=== PATIENT | male | born 1930 | race Caucasian/White ===

== ENCOUNTER 2017-05-29 11:51 | Inpatient (IN) ==
[2017-05-29 12:27] LABS: MANUAL DIFF NEEDED? NO
[2017-05-29] MEDS ORDERED: NS 1,000 ML IV ONE (12:27)
[2017-05-29 12:29] LABS: BASO% 0.1 % (0.0-0.8); EOS# 0.01 X1000 (0.0-0.7); EOS% 0.1 % (0.0-10.0); HEMATOCRIT 41.1 % (42.0-52.0); HEMOGLOBIN 12.8 g/dL (14.0-18.0); IMM GRAN# 0.07 X1000 (0.0-0.04); IMM GRAN% 0.4 % (0.0-0.5); LYMPH# 0.96 X1000 (1.2-3.4); LYMPH% 5.9 % (20.5-51.1); MCHC 31.1 g/dL (33-37); MONO# 1.41 X1000 (0.11-0.59); MONO% 8.7 % (1.7-9.3); MPV 9.6 FL (7.4-10.4); NEUT% 84.8 % (42.2-75.2); PLT 196 X1000 (130-400); RBC 5.34 XMIL (4.7-6.1)
[2017-05-29 12:39] LABS: ALLEN TEST YES; BE -1.8 mmoll (-3.0-3.0); BLOOD TYPE ARTERIAL; DRAW SITE R RADIAL; METHB 1.8 % (0.0-1.5); O2(CT) 15.6 mL/dL (15.0-23.0); PCO2(98.6) 33 mmHg (35-45); PO2(98.6) 58 mmHg (60-100); SAMPLE BLOOD; SAO2 93.8 % (95.0-100.0); THB 12.4 g/dL (11.5-17.4); pH(98.6) 7.43 (7.35-7.45)
[2017-05-29 12:41] LABS: MODALITY CANNULA
[2017-05-29 12:52] LABS: ALBUMIN 3.6 g/dL (3.5-5.0); CALCIUM 8.6 mg/dL (8.8-10.2); POTASSIUM 4.7 mmol/L (3.5-5.1); TOTAL BILIRUBIN 1.8 mg/dL (0.20-1.00); TOTAL PROTEIN 6.8 g/dL (6.3-8.3)
--- NOTE | 2017-05-29 13:01 | Diag Imaging Result Doc PS360 ---
EXAM: CHEST-1 VIEW HISTORY: hypoxia TECHNIQUE: AP portable upright at 1255 COMMENT: There is cardiomegaly. There granulomata bilaterally. The appearance of the chest has not changed significantly since 10/28/2016. IMPRESSION: Stable chest. Electronically signed by Wellington Mason 05/29/2017 12:59 PM
--- NOTE | 2017-05-29 14:33 | PROVIDER DOCUMENTATION ---
This chart was entered by Palmira Sandoval Scribe, acting as scribe for Holland Wolfe MD. HPI-General Adult - General Chief Complaint: General Adult Stated Complaint: HYPOTENSION, LOW O2 Time Seen by Provider: 05/29/17 12:05 Source: patient Allergies/Adverse Reactions: Patient Allergies Allergy/AdvReac Type Severity Reaction Status Date / Time No Known Allergies Allergy Verified 05/29/17 12:43 Home Medications: Home Medication List Medication Instructions Recorded Confirmed Last Taken Type LISINOpril [Prinivil] 5 mg PO DAILY 09/08/12 05/29/17 05/29/17 09:30 History PRAVAstatin 40 mg PO QHS 09/08/12 05/29/17 05/28/17 History Isosorbide Mononitrate [Isosorbide 30 mg PO DAILY 10/25/16 05/29/17 05/29/17 09: 30 History Mononitrate ER] Levetiracetam 500 mg PO BID 10/25/16 05/29/17 05/29/17 09:30 History Apixaban [Eliquis] 5 mg PO BID #60 tablet 10/31/16 05/29/17 05/29/17 09:30 Rx Cyanocobalamin (Vitamin B-12) 1,000 mcg PO DAILY 05/29/17 05/29/17 05/29/17 09: 30 History [Vitamin B12] Furosemide 40 mg PO DIRECTED 05/29/17 05/29/17 05/28/17 09:00 History Sennosides/Docusate Sodium [Stool 1 each PO DIRECTED 05/29/17 05/29/17 History Softener-Laxative Tablet] - History of Present Illness -Gen Adult Nature of Presenting Problems: Pt is a 86 y/o M present to the ED via EMS with low O2 and blood pressure. Pt states home health sent him here. Pt states he feels fine. Pt states he is walking and eating at home fine. Location of Pain/Injury: reports: none Pain Radiation: reports: no radiation Quality of Pain: reports: none Severity: reports: mild Onset/Duration: reports: this morning Timing: reports: still present Context/Activities at Onset: reports: light activity Modifying Factors: improves with: nothing Associated Symptoms: reports: denies symptoms Similar Symptoms Previously?: No Recently seen or treated by another doctor?: No Review of Systems - Adult - REVIEW OF SYSTEMS - ADULT ROS:: limited per condition Constitutional: reports: no symptoms reported Eyes: reports: no symptoms reported Ears, Nose, Mouth & Throat: reports: no symptoms reported Cardiovascular: reports: no symptoms reported Respiratory: reports: no symptoms reported Gastrointestinal: reports: no symptoms reported Genitourinary: reports: no symptoms reported Musculoskeletal: reports: no symptoms reported Integumentary: reports: no symptoms reported Neurological: reports: no symptoms reported Psychiatric: reports: no symptoms reported Endocrine: reports: no symptoms reported Hematologic/Lymphatic: reports: no symptoms reported Allergic/Immunologic: reports: no symptoms reported All Other Systems: Reviewed and Negative Past History - Adult - PAST MEDICAL HISTORY-ADULT Review of Records: reports: Nursing Assessment Review, Medications Reviewed, Social history reviewed & non-contributory. 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 negative: lethargic, slow to respond - EYES Eyes: PERRL/EOMI, pink conjunctivae. negative: pale conjunctivae, sunken eyes - HEAD, EARS, NOSE, MOUTH & THROAT HENMT: normal ENT inspection. negative: angioedema, hearing deficit - NECK Neck: normal inspection. negative: lymphadenopathy, tender lateral - RESPIRATORY Respiratory: chest non-tender, lungs clear, normal breath sounds. negative: crackles, rhonchi - CARDIOVASCULAR Cardiovascular: normal peripheral pulses, regular rate, rhythm. negative: tachycardia, systolic murmur - GASTROINTESTINAL (ABDOMEN) Abdominal Exam: normal bowel sounds, non tender, distended. negative: guarding , rebound - LYMPHATIC Lymphatic: no adenopathy. negative: enlargement, streaking - MUSCULOSKELETAL Back Exam: normal inspection. negative: ecchymosis, swelling Extremity: normal inspection. negative: deformity, erythema - SKIN Integumentary: normal color, normal turgor, warm/dry. negative: diaphoresis, ecchymosis, erythema, laceration(s) - NEUROLOGIC Neurologic: grossly normal. negative: aphasia, facial droop - PSYCHIATRIC Psych/Mental Status: normal mood/affect. negative: paranoid, tearful Progress - PLAN OF CARE/RESULTS Progress/Plan/Lab Results: Vital Signs - 8 hr 05/29/17 12:03 Temperature 99.4 F Pulse Rate 67 Respiratory Rate 20 Blood Pressure 86/46 O2 Sat by Pulse Oximetry 72 L Result Diagrams: 05/30/17 10:30 05/30/17 08:40 - REASSESSMENT Reassessment #1 Time Reassessed: 12:42 Status: other (Dr. Wolfe spoke with Pt's daughter about Pt. Pt's daughter states Pt has been declining since Saturday. Pt's daughter states hx of clot on brain and PE. Pt's daughter states she has recently had a decrease in appetite and the family has been having to feed Pt.) - EKG 1 Time of EKG reading by physician:: 12:24 EKG Read and Signed by:: Holland Wolfe EKG Interpretation (*Must complete 3 of following elements*): Abnormal (ST & T wave abnormality, consider lateral ischemia) Rate: 71 Rhythm: atrial fibrillation with uncontrolled response Comments: left axis deviation; inferior infarct, age undetermined - XRAY 1 XRAY Study: Chest Impression: Normal XRAY Interpretation: stable chest - ULTRASOUND (By Radiology) 1 US Study: Abdomen Impression: Abnormal ( Cholelithiasis with possible chronic cholecystitis. The aorta was not well demonstrated on this study) - CONSULTS/PCP/HOSPITALIST Notification #1 *Consult/PCP/Hospitalist*: Dr. Robles Time Discussed: 16:27 Reason/Comments: Dr. Wolfe consulted with Dr. Robles about Pt Consult Disposition: other (Dr. Robles will consult. Admit Pt to Hospitalist) #2 Consult: Dr. Georges Time Discussed: 16:31 (Hospitalist accepted admit ) Reason/Comments: Dr. Wolfe consults with Dr. Georges about Pt Consult Disposition: Admit Departure - Departure Date of Disposition Decision: 05/29/17 Time of Disposition Decision: 16:35 DIAGNOSIS: Sepsis Qualifiers: Sepsis type: sepsis due to unspecified organism Qualified Code(s): A41.9 - Sepsis, unspecified organism Cholecystitis with cholelithiasis Qualifiers: Cholelithiasis location: gallbladder Cholecystitis acuity: acute Biliary obstruction: without biliary obstruction Qualified Code(s): K80.00 - Calculus of gallbladder with acute cholecystitis without obstruction Hypotension Qualifiers: Hypotension type: other hypotension type Qualified Code(s): I95.89 - Other hypotension Disposition: ADMITTED INPATIENT 09 Certified Medical Emergency: Emergent Condition: Stable - Critical Care Note This patient required my direct & personal management of CC.: Yes Total Time (mins): 60 Critical Care Statement: This patient required my direct personal management to treat or rule out processes, the absence of which, could potentiallly result in sudden, clinically significant life or limb threatening deterioration. Attestation - Physician/ URMILA Attestation Patient care was provided by Advanced Practice Provider:: No The physician spent face to face time with patient:: Yes Advanced Practice Provider documentation review:: Supervising physician onsite and consulted in the evaluation and care of this patient. The physician did have a face to face encounter with the patient. This chart was documented by the indicated scribe, (Palmira Sandoval Scribe) and accurately reflects the services I performed and decisions made by me, Holland Wolfe MD, as attested by the provider's signature.
--- NOTE | 2017-05-29 15:08 | Diag Imaging Result Doc PS360 ---
EXAM: US ABDOMEN-COMPLETE HISTORY: hypotesive, aortic and iliac aneurysms? TECHNIQUE: Abdominal ultrasound COMMENT: The aorta is largely obscured. The study is somewhat suboptimal due to the patient's body habitus. The gallbladder is markedly thickened in appearance however there is no sonographic Stoner sign. There are some small stones demonstrated dependently. There is no evidence of biliary dilatation the common bile duct measuring 2 mm. There is antegrade flow in the portal vein. The inferior vena cava is normal where it is visible. The pancreas is obscured. The liver is not well demonstrated throughout its extent with the left lobe being largely obscured. There are granulomata in the spleen which is nonenlarged. There are apparent cysts present in the left kidney. One of these measures as much as 2.6 cm. There is no evidence of hydronephrosis on either side. IMPRESSION: Cholelithiasis with possible chronic cholecystitis. The aorta was not well demonstrated on this study. Electronically signed by Wellington Mason 05/29/2017 3:05 PM
[2017-05-29] MEDS ORDERED: NS 1,700 ML IV ONE (15:39)
[2017-05-29] MEDS: ZOSYN 3.375 GM in NS 50 ML IV SCH ×2 (15:44→21:39)
--- NOTE | 2017-05-29 15:45 | EKG Report ---
Test Performed on : 05/29/2017 12:24:57 PM Test Reason : irregular heart beat Blood Pressure : / mmHG Vent. Rate : 071 BPM Atrial Rate : 064 BPM P-R Int : 000 ms QRS Dur : 078 ms QT Int : 406 ms P-R-T Axes : 000 -48 010 degrees QTc Int : 441 ms Undetermined rhythm Left axis deviation Inferior infarct (cited on or before 22-JUL-2016) ST \T\ T wave abnormality, consider lateral ischemia Abnormal ECG When compared with ECG of 07-FEB-2017 14:55, Current undetermined rhythm precludes rhythm comparison, needs review T wave inversion now evident in Lateral leads Unconfirmed Result
[2017-05-29 16:30] LABS: URINE CULTURE NEEDED? NO; URINE MICRO REVIEW NEEDED? NO; URINE SOURCE CATH
[2017-05-29 16:36] LABS: BILIRUBIN URINE SMALL (NEGATIVE); BLOOD URINE TRACE (NEGATIVE); COLOR YELLOW; GLUCOSE URINE 70 mg/dL (NEGATIVE); LEUKOCYTES URINE NEGATIVE (NEGATIVE); NITRITE URINE NEGATIVE (NEGATIVE); PH URINE 5.5; PROTEIN URINE 70 mg/dL (NEGATIVE); SP GRAVITY URINE 1.021; TURBIDITY URINE CLEAR (CLEAR); UROBILINOGEN URINE 4 mg/dL (NORMAL)
[2017-05-29 16:37] LABS: UR EPITHELIAL CELLS <10 /HPF (<10); URINE BACTERIA NEGATIVE /HPF; URINE RBC <10 /HPF (<10); URINE WBC <10 /HPF (<10)
[2017-05-29] MEDS ORDERED: LEVOPHED 8 MG in D5 1/2 NS 250 ML IV SCH (17:15)
[2017-05-29] MEDS ORDERED: ZOFRAN IV PRN (17:37)
[2017-05-29] MEDS ORDERED: TYLENOL PO PRN (17:37)
--- NOTE | 2017-05-29 17:40 | Diag Imaging Result Doc PS360 ---
EXAM: CHEST-PORTABLE - 05/29/2017 HISTORY: SOB TECHNIQUE: Portable chest 1720 COMPARISON: 05/29/2017 FINDINGS: There is stable cardiomegaly. There is stable mild prominence of central vascular markings. Compared to previous exam, there are no acute changes identified. IMPRESSION: Stable exam compared to prior. Electronically signed by Oscar Melton 05/29/2017 5:38 PM
[2017-05-29] MEDS ORDERED: DUONEB (A & A) INH PRN (17:42)
[2017-05-29] MEDS: FLAGYL 500 MG/NS 500 MG/100 ML IVPB IV SCH ×2 (17:49→23:29)
[2017-05-29] MEDS ORDERED: NS 1,000 ML IV SCH (18:17)
[2017-05-29 18:37] LABS: ALLEN TEST YES; BE -1.5 mmoll (-3.0-3.0); BLOOD TYPE ARTERIAL; DRAW SITE R RADIAL; METHB 0.9 % (0.0-1.5); O2(CT) 14.2 mL/dL (15.0-23.0); PCO2(98.6) 36 mmHg (35-45); PO2(98.6) 65 mmHg (60-100); SAMPLE BLOOD; SAO2 96.4 % (95.0-100.0); THB 10.9 g/dL (11.5-17.4); pH(98.6) 7.41 (7.35-7.45)
[2017-05-29 18:38] LABS: MODALITY CANNULA
[2017-05-29] MEDS ORDERED: PERICOLACE PO PRN (19:06)
--- NOTE | 2017-05-29 20:04 | Diag Imaging Result Doc PS360 ---
EXAM: LUNG SCAN / VQ - 05/29/2017 HISTORY: R/O PE TECHNIQUE: Ventilation images performed using 40.1 mCi technetium 99m DTPA aerosol inhaled. Perfusion images performed using 5.8 mCi technetium 99m MAA administered intravenously. Ventilation perfusion images are obtained in multiple projections over the lungs. COMPARISON: 10/25/2016 FINDINGS: Ventilation is heterogeneous. Perfusion is more homogeneous. There is no ventilation/perfusion mismatch (area which is ventilated but not perfused) identified. IMPRESSION: Low probability for pulmonary embolism. Electronically signed by Oscar Melton 05/29/2017 8:01 PM
[2017-05-29] MEDS: DUONEB (A & A) INH SCH ×2 (20:17→22:54)
--- NOTE | 2017-05-29 20:27 | Diag Imaging Result Doc PS360 ---
EXAM: CT ABDOMEN W/O CONTRAST - 05/29/2017 HISTORY: abdominal distention, cholecystitis TECHNIQUE: Without contrast per request the referring provider. Dose reduction protocol. COMPARISON: 10/29/2016 FINDINGS: The gallbladder is distended. The gallbladder perez are thickened. There are pericholecystic inflammatory changes. These findings are suspicious for acute cholecystitis. There are no other acute abnormalities of the liver, spleen, or pancreas identified. The pancreas is atrophic similar to the previous exam. There are atherosclerotic calcifications plus or minus nonobstructing stones in the left kidney. There is no hydronephrosis. The infrarenal abdominal aorta is mildly dilated up to 3.4 x 2.9 cm, which is stable. There are atherosclerotic calcifications noted. The right common iliac artery is dilated up to 4.1 cm, which is stable. There is no evidence of bowel obstruction. There is no free air. IMPRESSION: Acute cholecystitis. Stable dilatation of infrarenal abdominal aorta. Stable dilatation of right common iliac artery. Verbal results provided to Dr. Kaiser at 8:24 PM on 05/29/2017. Electronically signed by Oscar Melton 05/29/2017 8:25 PM
[2017-05-29] MEDS: HUMULIN R SUBQ SCH (20:29)
[2017-05-29] MEDS ORDERED: HEPARIN SUBQ SCH (21:00)
[2017-05-30] MEDS: ZOSYN 3.375 GM in NS 50 ML IV SCH ×5 (03:15→21:25)
[2017-05-30] MEDS: DUONEB (A & A) INH SCH ×6 (03:32→23:01)
[2017-05-30 04:28] LABS: BASO% 0.1 % (0.0-0.8); HEMATOCRIT 33.6 % (42.0-52.0); HEMOGLOBIN 10.3 g/dL (14.0-18.0); IMM GRAN# 0.08 X1000 (0.0-0.04); IMM GRAN% 0.7 % (0.0-0.5); LYMPH# 0.62 X1000 (1.2-3.4); LYMPH% 5.8 % (20.5-51.1); MANUAL DIFF NEEDED? YES; MCH 23.8 PG (27-31); MCHC 30.7 g/dL (33-37); MCV 77.8 FL (81-99); MONO% 8.3 % (1.7-9.3); MPV 9.6 FL (7.4-10.4); NEUT% 85.1 % (42.2-75.2); PLT 141 X1000 (130-400); RBC 4.32 XMIL (4.7-6.1)
[2017-05-30] MEDS: FLAGYL 500 MG/NS 500 MG/100 ML IVPB IV SCH ×4 (04:36→22:48)
[2017-05-30 04:38] LABS: HEMOGLOBIN A1C 7.8 % (4.8-6.0)
[2017-05-30 04:49] LABS: BANDS 1 % (0-1); LYMPHS 6 % (21-51); MONO 8 % (1-9)
[2017-05-30 05:32] LABS: INR 1.22; PTT 34.1 Seconds (22.0-36.0)
[2017-05-30] MEDS: HUMULIN R SUBQ SCH ×4 (06:04→20:14)
--- NOTE | 2017-05-30 06:46 | CONSULTATION ---
DATE OF CONSULTATION: 05/29/2017 REASON FOR CONSULTATION: Hypoxemic respiratory failure and sepsis. HISTORY OF PRESENT ILLNESS: Mr. Floyd is an 86-year-old white male with COPD, history of pulmonary emboli (recurrent), history of subdural hematoma, history of coronary artery disease, and history of pulmonary hypertension, who was brought to the emergency room for low oxygen saturation and decreased blood pressure. The patient had evidence of leukocytosis on a CBC. Chest x-ray revealed no evidence of disease. Urinalysis revealed no significant leukocytes. CT scan of the abdomen was performed. Fibrosis can be seen in the lung bases. The patient has evidence of thickened gallbladder with pericholecystic inflammatory changes consistent with acute cholecystitis. A ventilation-perfusion scan was also performed which revealed no evidence of mismatching. Patient's D-dimer was minimally elevated at 0.89. This is compared with 8.44 in October when he presented with acute pulmonary embolus in the right lower lobe. The patient blood pressure was 86 in the emergency room, but it has responded to IV hydration without the need to add vasopressors. PAST MEDICAL HISTORY/PROBLEM LIST: 1. Chronic obstructive pulmonary disease. 2. Recurrent pulmonary emboli. 3. 3.4 cm abdominal aneurysm noted in October of 2016. 4. 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 5. Pulmonary hypertension. 6. Coronary artery disease with myocardial infarction in 1992 and percutaneous intervention in 1997 of the right coronary. 7. Paroxysmal atrial fibrillation. 8. Subdural hematoma June,, requiring surgical intervention. 9. Diabetes mellitus. 10. Obesity. 11. Diabetic neuropathy. SOCIAL HISTORY: The patient is a . No recent tobacco use. FAMILY HISTORY: Positive for heart disease. REVIEW OF SYSTEMS: Notable for dyspnea, decreased appetite. He denies abdominal pain. PHYSICAL EXAMINATION: General: Reveals an elderly white male with [id number] work of breathing. Vital Signs: Blood pressure 120/73, heart rate 79, respiration rate 16, oxygen saturation 97% on 5 L per nasal cannula. HEENT: Pupils are equal reactive. Oropharynx is dry. Neck: Supple. Chest: Reveals diffuse wheezing and rhonchi bilaterally. Cardiac Examination: Increased rate. Abdomen: Mildly distended. He denies right upper quadrant pain. Extremities: Slightly cool to the touch. LABORATORIES: Creatinine is 1.9, BUN 41. Lactate 4.1. ProBNP is elevated at 4547. Cortisol 29.5. White blood count 16.2, hemoglobin 12.8, platelet count 196,000. Arterial blood gas reveals pH 7.41, pCO2 of 36, pO2 of 65 on 3 L per nasal. IMPRESSION: An 86-year-old with severe chronic obstructive pulmonary disease, acute hypoxemic respiratory failure, acute cholecystitis with leukocytosis and abnormal CT scan, sepsis responding to IV hydration, and acute renal failure. RECOMMENDATIONS: 1. Judicious use of fluids, as you are doing. Would add vasopressors if necessary. 2. Agree with surgical consultation, although his mortality is pretty high if he requires an operation. 3. Routine bronchodilators, as you have ordered. 4. Agree with broad-spectrum antibiotics. 5. Consider gastric acid suppression. 6. Reinstitute anticoagulation to prevent deep vein thrombosis, once it is decided whether he will be a candidate for an operation if necessary. PROGNOSIS: His prognosis is poor. Agree with current code status of DNR level 2. cc: Tnog Mccoy MD
--- NOTE | 2017-05-30 07:26 | Diag Imaging Result Doc PS360 ---
CHEST-PORTABLE - 05/30/2017 INDICATION: respiratory failure TECHNIQUE: COMPARISON: 05/29/2017 FINDINGS: Stable significant pulmonary vascular congestion. No definite infiltrates or edema. No pneumothorax or large effusion. Stable cardiomegaly. IMPRESSION: No change from prior. Electronically signed by Ovidio Enriquez 05/30/2017 7:23 AM
--- NOTE | 2017-05-30 07:50 | CONSULTATION ---
DATE OF CONSULTATION: 05/30/2017 HISTORY: Mr. Noble Floyd is an 86-year-old white male who is admitted through our emergency department yesterday with hypotension and decreased O2 saturation. I initially saw him last night. He has been evaluated in the emergency department now in our ICU, and a CT scan of his abdomen and pelvis suggests that he has acute cholecystitis. We were asked to evaluate him because of his cholecystitis. PAST MEDICAL HISTORY: Chronic obstructive pulmonary disease, history of recurrent pulmonary emboli, infrarenal abdominal aortic aneurysm measuring 3.4 cm as of October of 2016, a 4.2 cm right common iliac aneurysm again noted in October of 2016. Pulmonary hypertension. Coronary artery disease with history of myocardial infarction in 1992. He has had angioplasty of his right coronary artery in 1997. He has had paroxysmal atrial fibrillation, subdural hematoma in June of 2016 requiring surgical intervention, diabetes mellitus, obesity and diabetic neuropathy. MEDICATIONS: Stool softener, pravastatin, Prinivil, isosorbide mononitrate, Eliquis, vitamin B12, Lasix, and levetiracetam. ALLERGIES: No known drug allergies. SOCIAL HISTORY: He is a . He does not smoke now. FAMILY HISTORY: Heart disease. REVIEW OF SYSTEMS: Recent shortness of breath and decreased appetite. PHYSICAL EXAMINATION: Vital Signs: On exam, Mr. Floyd was in the ICU when I initially evaluated him. He was hemodynamically stable with a blood pressure 110/60 and heart rate of 90. He did have work up breathing, but he was awake and cooperative. Skin: He had no jaundice. No oral lesions. Lymphatic: No cervical or supraclavicular lymphadenopathy. Heart: Irregular rate. Lungs: He had wheezing bilaterally and he did have some work up breathing. Abdomen: Distended but not tightly so. It did not appear that he had much tenderness. I could not palpate any mass intra-abdominally. He had no costovertebral tenderness. Rectal: Exam was not performed. He did have palpable femoral pulses. He had mild peripheral edema. Neurologic: No neurologic deficit. DIAGNOSTIC DATA: A CT scan of his abdomen and pelvis suggests acute cholecystitis and cholelithiasis. The abdominal aortic aneurysm and iliac aneurysm as described above. IMPRESSION: Acute cholecystitis. PLAN: He is at high risk for any operation I had a long discussion with his daughter and son at the bedside, and we discussed different treatment options including IV antibiotics only, IV antibiotics and percutaneous drainage of the gallbladder, and cholecystectomy. He is being resuscitated. He is receiving IV antibiotics and we will evaluate him on a daily basis. cc: Shannon Robles MD
--- NOTE | 2017-05-30 08:34 | HISTORY AND PHYSICAL ---
CHIEF COMPLAINT: Nausea, vomiting, generalized weakness and confusion. HISTORY OF PRESENT ILLNESS: An 86-year-old, male, with multiple comorbidities including coronary artery disease, COPD, subdural hematoma, pulmonary embolism, CKD, right common iliac aneurysm, paroxysmal atrial fibrillation, possible heart failure and diabetes was brought to the emergency department with a chief complaint of generalized weakness, confusion, nausea and vomiting. Apparently, everything started on Saturday with just nausea and decreased appetite, and every time he tried to eat, he felt nauseated. He went to a private doctor yesterday who provided Phenergan x1 and then he was sent home. As per the daughter, he started to decline. He started having more nausea, more vomiting and confusion. Today, they decided to come to the emergency department where he was found to have a low blood pressure. He was tachypneic. The low oxygen saturation at 72 on room air. WBC of 16.2. Lactate level 2.4. ABGs that showed a PO2 of 58. BUN and creatinine are elevated a little bit more than his baseline. ProBNP of 4547. He received IV fluids in the emergency department and the blood pressure is still low, this is why vasopressors were started. On physical exam, he is complaining of right upper quadrant discomfort with an abdominal ultrasound that showed cholelithiasis with possible chronic cholecystitis. He has been placed on antibiotics. Because, he has a past medical history of pulmonary embolism and now he is coming with hypoxia, I will ask for a V/Q scan to rule out a new pulmonary embolism. I will consult Pulmonary Department to evaluate this patient. Surgery Department has been consulted from the ED department to evaluate for possible cholelithiasis with cholecystitis. This patient will be transferred to the ICU for close monitoring. PHYSICAL EXAMINATION: VITAL SIGNS: Temperature 99.4, pulse 82, respiratory rate 31, blood pressure 98/54. O2 saturation 97% on 3 L of nasal cannula. HEENT: Normocephalic. No trauma. PERRLA. NECK: Mild JVD. Central trachea. CHEST: Decreased breath sounds globally with end expiratory wheezing. Prolonged expiatory phase. CARDIOVASCULAR: Irregularly irregular rate and rhythm. ABDOMEN: Soft. Distended. Mild generalized tenderness to palpation but mostly at the level of the right upper quadrant. No signs of peritoneal irritation. EXTREMITIES: Trace lower extremity edema. No clubbing. No cyanosis. NEUROLOGICAL: This patient is alert. He is following commands. He is answering all of my questions. He is oriented x3, but he looks tired. LABORATORY: WBC 16.2, hemoglobin 12.8, hematocrit 41.1, platelets 196,000, sodium 139, potassium 4.7, chloride 100, bicarbonate 25, BUN 41, creatinine 1.9, glucose 263, calcium 8.4, proBNP 4547 and lactate 2.5. REVIEW OF SYSTEMS: All the 14 points of review of systems were reviewed. All negative except as per HPI. He denies headache. He denies chest pain. No headache. No double vision. No diarrhea. No constipation. PAST MEDICAL HISTORY: COPD. Coronary artery disease. Subdural hematoma. Chronic kidney disease. Pulmonary embolism, right common iliac aneurysm, paroxysmal atrial fibrillation. Questionable heart failure with elevated proBNP and apparently also history of abdominal aortic aneurysm. FAMILY HISTORY: I think his father had a stroke and mother has cancer/lymphoma. SOCIAL HISTORY: He quit smoking in . No alcohol. No drugs. ALLERGIES: No known allergies. HOME MEDICATIONS: 1. Docusate/sennosides 1 each p.o. as directed. 2. Pravastatin 40 mg p.o. at bedtime. 3. Keppra 500 mg p.o. b.i.d. 4. Lisinopril 5 mg p.o. b.i.d., 5. Isosorbide mononitrate 30 mg p.o. daily. 6. Eliquis 5 mg p.o. b.i.d. 7. B12 1000 mcg p.o. daily. 8. Furosemide 40 mg p.o. as directed. DIAGNOSTIC STUDIES: 1. Chest x-ray - Impression stable. Chest x-ray compared to the prior admission. 2. Abdominal ultrasound - Impression: Cholelithiasis with possible chronic cholecystitis. 3. EKG - It looks like undetermined rhythm, but I cannot rule out atrial flutter. ASSESSMENT AND PLAN: 1. Septic shock. This patient received already some fluid boluses at the emergency department, and the blood pressure did not go up so he has been placed on Levophed. Also, we will start this patient on antibiotics for now Zosyn and metronidazole. This patient will be transferred to the ICU for close monitoring. 2. Respiratory failure with hypoxia. This patient has end expiatory wheezing and he has history of COPD, probably he has also COPD exacerbation. I have placed this patient on DuoNeb schedule and p.r.n., oxygen, and also I have consulted pulmonary department to evaluate this patient. 3. Acute on chronic kidney disease. His baseline is around 1.4-1.7. Today, is a little bit elevated with the creatinine to 1.9. He already received some fluids for resuscitation at the emergency department. We will continue to monitor. 4. Type 2 diabetes. He is using Lantus at home around 64 units. Here, we will go with the sliding scale insulin and pattern of blood sugar, this patient is not eating. 5. Possible CHF. His proBNP is elevated. He had an echocardiogram on 10/25/2016 that showed an ejection fraction of 55, so probably his CHF is diastolic, probably I will need to ask again for a new echocardiogram. 6. Chronic obstructive pulmonary disease exacerbation. This patient is wheezing and he is having trouble breathing, I have placed this patient on breathing treatment and oxygen. Continue with pulmonary toilet. 7. History of subdued subdural hematoma. Aware. This is not new and actually on the previous admission this patient was started again on Eliquis. We asked his neurosurgeon to see if we can at that time start this patient back on anticoagulation because this patient has a pulmonary embolism. 8. History of pulmonary embolism with paroxysmal atrial fibrillation. This patient has been on Eliquis. I have stopped that. 9. DVT prophylaxis. I put this patient on heparin twice a day given his kidney dysfunction. 10. DNR level 2. We can only use medications for this patient. No aggressive measures. No CPR. No cardioversion. No endotracheal or intubation. 11. I had the last conversation with the daughter about his prognosis and DNR status. I talked to the patient about this as well and he states that he does not want to get chest compressions, cardioversion or mechanical ventilation. 12. This patient will be admitted to the ICU. I have asked for some lab work and also imaging studies including a D-dimer, V/Q scan, CT of the abdomen and new ABGs. Also, I have consulted Pulmonary Department to evaluate this patient given his respiratory failure with hypoxia. 13. Further recommendations pending hospital course. cc: Miguel Angel Franklin MD
[2017-05-30 09:16] LABS: ALBUMIN 2.8 g/dL (3.5-5.0); CALCIUM 7.8 mg/dL (8.8-10.2); POTASSIUM 4.1 mmol/L (3.5-5.1); TOTAL BILIRUBIN 2.09 mg/dL (0.20-1.00); TOTAL PROTEIN 5.7 g/dL (6.3-8.3)
[2017-05-30] MEDS ORDERED: LANTUS SUBQ SCH (09:45)
[2017-05-30] MEDS ORDERED: INSULIN PEN NEEDLES ONE (09:56)
[2017-05-30 10:39] LABS: HEMATOCRIT 34.2 % (42.0-52.0); HEMOGLOBIN 10.3 g/dL (14.0-18.0); MCH 23.7 PG (27-31); MCHC 30.1 g/dL (33-37); MCV 78.8 FL (81-99); MPV 9.5 FL (7.4-10.4); RBC 4.34 XMIL (4.7-6.1)
--- NOTE | 2017-05-30 12:15 | PROGRESS NOTE ---
DATE: 05/30/2017 SUBJECTIVE: This patient is still in a critical situation even though he feels a little bit better. He is still having shortness of breath and some abdominal discomfort. Family members at the bedside, her daughter and I answered all her questions. Pulmonary Department and Surgery Department following this patient closely. I will continue with Zosyn and metronidazole for now. His kidney function is a little bit worse. He is NPO but if he is not going for surgery or any kind of procedure probably I will start this patient on a diet. OBJECTIVE: Vital Signs: Temperature 98.6 degrees, pulse 88, respiratory rate 24, blood pressure 95/45. Oxygen saturation 95% on 5 L of nasal cannula. HEENT: Head normocephalic. No trauma. PERRLA. Neck: Supple. No JVD. Mild JVD. Central trachea. Chest: Decreased breath sounds globally with end expiatory wheezing. Prolonged expiratory phase. Cardiovascular: Regular rate and rhythm. Abdomen: Soft, distended. Mild generalized tenderness to palpation but mostly at the level of the right upper quadrant. Tympanic. No signs of peritoneal irritation. Extremities: Trace lower extremity edema. No clubbing. No cyanosis. Neurological: The patient is alert. He is following commands. He is alert and oriented x3. He is answering my questions. LABORATORY: WBC 10.7, hemoglobin 10.3, hematocrit 33.6, platelets 141,000. Sodium 144, potassium 4.1, chloride 106, bicarbonate 22. BUN 51, creatinine 2, glucose 235. Hemoglobin A1c 7.8. Calcium 7.8. Albumin 2.8. ASSESSMENT AND PLAN: 1. Septic shock. This patient has been resuscitated. We will keep an eye on the blood pressure to see if we need to start this patient on Levophed. Continue with antibiotics and monitoring in the ICU. WBC is better today. We will continue to monitor this patient closely. 2. Respiratory failure with hypoxia. This patient has a end expiratory wheezing and history of COPD. Probably he has COPD exacerbation as well. Continue with DuoNeb scheduled and p.r.n. Pulmonary toilet. Pulmonary Department is following this patient. 3. Acute on chronic kidney disease. His baseline is around 1.4 to 1.7. His BUN and creatinine increased a little bit compared with yesterday. We will continue with the same management for now. I will monitor the urine output. 4. Type 2 diabetes. He is not eating at this moment. Apparently he has been using Lantus high- dose at home. His blood sugar is around 200. I will start this patient on a low dose of Lantus and I will monitor, continue with sliding scale insulin, and pattern of blood sugar. 5. Possible CHF. His proBNP is elevated. It has been elevated before. He had an echocardiogram done on 10/25/2016 that showed an ejection fraction of 55, so probably his CHF is diastolic. 6. Chronic obstructive pulmonary disease exacerbation. As above. 7. History of subdural hematoma. Aware. He has been on Eliquis. I think this is resolved. Like I said, he has been on Eliquis because of history of pulmonary embolism that happened after the subdural hematoma. 8. History of pulmonary embolism and paroxysmal atrial fibrillation. This patient has been on Eliquis. I have stopped that and now he is on heparin subcutaneously given his kidney injury. 9. Deep vein thrombosis prophylaxis. Continue with heparin. 10. DNR level 2. We can only use medication for this patient. No aggressive measures. No CPR. No cardioversion. No endotracheal tube or mechanical ventilation. CRITICAL CARE TIME: 45 minutes. cc: Miguel Angel Franklin MD
--- NOTE | 2017-05-30 15:35 | PROGRESS NOTE ---
DATE: 05/30/2017 SUBJECTIVE: Mr. Noble Floyd clinically looks better. He is on IV antibiotics. His laboratory data also has improved since admission. He is on Eliquis. He last took it yesterday morning, and we will continue to treat his acute cholecystitis with IV antibiotics for now and, on a day-to-day basis, make decisions on the treatment of his acute cholecystitis. We may be able treat it with IV antibiotics alone, possible percutaneous drainage of the gallbladder, with IV antibiotics or cholecystectomy. His Eliquis is making us treat it with IV antibiotics alone at this time. cc: Shannon Robles MD
[2017-05-30] MEDS: CLINIMIX E 4.25%-5% SOLUTION 1,000 ML IV SCH (17:29)
[2017-05-30] MEDS: SODIUM CHLORIDE 0.9% INJ SCH (18:07)
[2017-05-30] MEDS: PROTONIX IV SCH (18:07)
[2017-05-30] MEDS: HEPARIN SUBQ SCH (20:15)
--- NOTE | 2017-05-30 21:37 | CONSULTATION ---
DATE OF CONSULTATION: 05/30/2017 PRIMARY CARE PROVIDER: Radha Salinas M.D. PRIMARY HOSPITALIST: Miguel Angel Franklin M.D. INDICATION FOR CONSULTATION: 1. Nausea with vomiting. 2. Hematochezia. 3. Weakness. 4. Confusion. HISTORY OF PRESENT ILLNESS: The patient is an 86-year-old white male with multiple medical problems. He is on Eliquis for management of his atrial fibrillation. He presented to the emergency room after 2 days of nausea, decreased appetite, abdominal pressure followed by nausea with vomiting, confusion and a single episode of hematochezia. He was admitted to the emergency room, where he was found to be tachypneic and hypoxic. He was also found to have an elevated BUN, creatinine and BNP. He was noted to be hypotensive and has subsequently required pressors for support. Upon further evaluation, his right upper quadrant pain was evaluated with an abdominal ultrasound that is remarkable for cholelithiasis with probable cholecystitis. Because of his severe hypoxia, he is in the ICU. Because of the nausea with vomiting, abdominal pain and episode of hematochezia, we are asked to participate in his care. Of note, since admission, he had a V/Q scan that was low probability for pulmonary embolism. On CT scan of the abdomen and pelvis, he was found to have changes consistent with acute cholecystitis, stable infrarenal aortic aneurysm, stable dilation of right common iliac artery and gallbladder wall thickening. His liver, spleen and pancreas were unremarkable. His kidneys showed no evidence of hydronephrosis. He has a known sigmoid colon mass found during his last admission. Endoscopic evaluation was prevented by the diagnosis of the subdural hematoma. PAST MEDICAL HISTORY: 1. Coronary artery disease. 2. COPD. 3. Subdural hematoma. 4. Pulmonary embolism. 5. Chronic kidney disease. 6. Right common iliac aneurysm. 7. Paroxysmal atrial fibrillation. 8. Congestive heart failure. 9. Diabetes mellitus 2. 10. Obesity. 11. Pulmonary embolus. 12. Diabetic neuropathy PAST SURGICAL HISTORY: Subdural hematoma evacuation. SOCIAL HISTORY: The patient is a . He is a previous smoker. He stopped smoking in the . He denies alcohol or recreational drug use. FAMILY HISTORY: Positive in that his father had a stroke. His mother had lymphoma. MEDICATION ALLERGIES: None. HOME MEDICATIONS: 1. Docusate/sennosides. 2. Pravastatin. 3. Keppra. 4. Lisinopril. 5. Isosorbide. 6. Eliquis. 7. Vitamin B12. 8. Lasix. REVIEW OF SYSTEMS: Limited as the patient was somewhat tachypneic. He notes some mild shortness of breath and right upper quadrant discomfort. He also notes loss of appetite. He had two solid brown bowel movements today with no evidence of recurrent bleeding. PHYSICAL EXAMINATION: Vital signs: His blood pressure is 99/54, pulse of 77, respirations 32-36. His temperature is 98.5 degrees. General: He is an ill-appearing white male, with mild respiratory distress and tachypneic. Pulmonary: He has inspiratory and expiratory wheezes with decreased breath sounds bilaterally. Cardiovascular: His rhythm is regular with possible irregular beats. There were no obvious murmurs or gallops appreciated. Abdominal: Reveals normoactive bowel sounds. The abdomen is soft with mild right upper quadrant tenderness, but no rebound or guarding. Extremities: Bilaterally are notable for edema. Neurologic: The patient is alert. He follows commands and answers simple questions. OBJECTIVE DATA: Remarkable for hemoglobin of 10.3 with hematocrit of 33.6, and a white count of 10.78. He has 141,000 platelets. His PT is 13 with an INR of 1.22 and a PTT of 34.1. On blood gas obtained on 05/29/2017, his pH was 7.1, pCO2 36, PO2 65 on 3 L nasal cannula. Serum chemistries from today, his sodium is 144, potassium 4.1, chloride 106, CO2 22, BUN 51, creatinine 2 with a glucose of 235. Calcium is 7.8, total bilirubin 2.09, AST 43, ALT 12, alkaline phosphatase 94, total protein 5.7, and albumin 2.8. His urinalysis is negative for white blood cells although there was a trace amount of blood present. IMPRESSION: 1. Nausea with vomiting. 2. Acute cholecystitis. 3. Cholelithiasis. 4. Single episode of hematochezia. 5. Known sigmoid colon mass, likely malignant. RECOMMENDATION: 1. Because of the patient's clinical status, I do not recommend endoscopic evaluation at this time. If he is stable post recovery, we can reconsider endoscopic evaluation. 2. I agree with antibiotic treatment and conservative management for his acute cholecystitis. This should be managed prior to considering endoscopic intervention in the absence of rebleeding. 3. Please begin Protonix 40 mg IV q.12 hours. 4. Monitor serial hemoglobin and hematocrit as indicated. 5. Additional recommendations to follow based on his clinical course. cc: MD Miguel Angel Maurice MD Bhavna Gowda, MD MTDD
[2017-05-31] MEDS: ZOSYN 3.375 GM in NS 50 ML IV SCH ×4 (02:53→20:30)
[2017-05-31] MEDS: DUONEB (A & A) INH SCH ×6 (03:05→22:57)
[2017-05-31 05:23] LABS: HEMATOCRIT 33.9 % (42.0-52.0); HEMOGLOBIN 10.2 g/dL (14.0-18.0); IMM GRAN# 0.03 X1000 (0.0-0.04); IMM GRAN% 0.4 % (0.0-0.5); LYMPH# 0.37 X1000 (1.2-3.4); LYMPH% 4.5 % (20.5-51.1); MANUAL DIFF NEEDED? YES; MCH 23.7 PG (27-31); MCHC 30.1 g/dL (33-37); MCV 78.8 FL (81-99); MONO# 0.64 X1000 (0.11-0.59); MONO% 7.9 % (1.7-9.3); MPV 9.8 FL (7.4-10.4); NEUT% 87.2 % (42.2-75.2); PLT 143 X1000 (130-400)
[2017-05-31 05:53] LABS: ALBUMIN 2.6 g/dL (3.5-5.0); CALCIUM 8.1 mg/dL (8.8-10.2); MAGNESIUM 2.4 mg/dL (1.5-2.7); POTASSIUM 4.3 mmol/L (3.5-5.1); TOTAL BILIRUBIN 2.97 mg/dL (0.20-1.00); TOTAL PROTEIN 5.6 g/dL (6.3-8.3)
[2017-05-31 06:00] LABS: BANDS 1 % (0-1); LYMPHS 5 % (21-51); MONO 2 % (1-9)
[2017-05-31] MEDS: HUMULIN R SUBQ SCH ×5 (06:02→20:26)
[2017-05-31] MEDS: PROTONIX IV SCH ×2 (06:02→18:31)
[2017-05-31] MEDS: FLAGYL 500 MG/NS 500 MG/100 ML IVPB IV SCH ×4 (06:08→23:33)
--- NOTE | 2017-05-31 07:48 | Diag Imaging Result Doc PS360 ---
EXAM: CHEST-PORTABLE - 05/31/2017 HISTORY: respiratory failure TECHNIQUE: Portable chest 0500 COMPARISON: 05/30/2017 FINDINGS: There is stable cardiomegaly. There are stable interstitial marking prominence. There is no pneumothorax identified. IMPRESSION: Stable exam compared to prior. Electronically signed by Oscar Melton 05/31/2017 7:45 AM
[2017-05-31] MEDS: CLINIMIX E 4.25%-5% SOLUTION 1,000 ML IV SCH ×2 (08:34→23:32)
[2017-05-31] MEDS: HEPARIN SUBQ SCH ×2 (08:35→20:26)
[2017-05-31] MEDS: LANTUS SUBQ SCH (09:09)
--- NOTE | 2017-05-31 13:50 | PROGRESS NOTE ---
DATE: 05/31/2017 Mr. Noble Floyd is an 86-year-old white male who has acute cholecystitis by CT scan. He is in our ICU. He has multiple medical problems including COPD and work of breathing. He has been on Eliquis. We have treated his acute cholecystitis with IV antibiotics over the last 2 days. He has been off Eliquis now for 2 days. He really does not have much abdominal pain. His pulmonary function has worsened slightly and now that he is on a closed face mask O2. His heart rate is 86, blood pressure 122/69, O2 saturations 90%. He will be given a diet today. We are going to try to treat him conservatively with IV antibiotics at his request and follow him. cc: Shannon Robles MD
--- NOTE | 2017-05-31 15:21 | PROGRESS NOTE ---
DATE: 05/31/2017 SUBJECTIVE: This patient is still in a critical situation even though he feels a little bit better. He is still having shortness of breath and some abdominal discomfort but the abdominal pain is much better. Family members at the bedside, daughter, and I answered all her questions. Pulmonary department and surgery department following this patient closely. For now, I think I am going to continue with Zosyn and metronidazole. The kidney function is about the same compared with yesterday, but it looks like his urine output is getting a little bit better. We will monitor this. Since I do not think this patient is a good candidate for surgery, I will ask for a swallow evaluation and I will start feeding this patient. OBJECTIVE: Vital Signs: Temperature 98 degrees, pulse 86, respiratory rate 22, blood pressure 122/69, oxygen saturation 96 on a Venturi mask. HEENT: Normocephalic. No trauma. PERRLA. Neck: Supple. No JVD. No masses. Central trachea. Chest: Decreased breath sounds globally with mild scattered wheezing, prolonged expiratory phase. Cardiovascular: Irregular rate and rhythm. Abdomen: Soft, mild distended, mild generalized tenderness to palpation but compared with yesterday, he is better. No signs of peritoneal irritation. Extremities: Trace lower extremity trace edema. No clubbing. No cyanosis. Neurological: The patient is alert. He is following commands. He is oriented x3. He is answering my questions. LABORATORY: WBC 8.1, hemoglobin 10.2, hematocrit 33.9, platelet 143,000. Sodium 145, potassium 4.3, chloride 111, bicarbonate 20, BUN 54, creatinine 2.1. Glucose 245, calcium 4.1. Albumin 2.6. ASSESSMENT AND PLAN: 1. Septic shock. This patient has been resuscitated with fluids, we are keeping an eye on his blood pressure. We will continue with antibiotics and monitoring this patient in the ICU. His WBC is better. He is not having fever or chills. 2. Respiratory failure with hypoxia. Patient at this moment is using a Ventimask, I will continue with breathing treatment with DuoNeb, pulmonary toilet and oxygen. 3. Acute on chronic kidney disease. His baseline is around 1.7. His BUN and creatinine is a little bit elevated from his baseline. We will continue with the same management. It looks like his urine output is better. 4. Type 2 diabetes. We are restarting this patient on a diet and we will continue to monitor, he is on Lantus sliding scale insulin and pattern of blood sugar. 5. Possible congestive heart failure. His proBNP is elevated and it has been elevated before, likely this is diastolic congestive heart failure. We will continue to monitor. 6. Chronic obstructive pulmonary disease exacerbation. As above. 7. History of subdural hematoma. Aware. 8. History of pulmonary embolism and paroxysmal atrial fibrillation. He has been on anticoagulation with Eliquis. I have stopped that medication and he is on heparin subcutaneously, given his kidney injury. 9. Deep vein thrombosis prophylaxis. Continue with heparin. 10. This patient is DNR level 2, we can only use medications for this patient. No aggressive measures. No CPR. No cardioversion. No endotracheal tube or mechanical ventilation. CRITICAL CARE TIME: Thirty-five minutes. cc: Miguel Angel Franklin MD
[2017-06-01] MEDS: DUONEB (A & A) INH SCH ×6 (03:30→22:50)
[2017-06-01] MEDS: ZOSYN 3.375 GM in NS 50 ML IV SCH ×4 (03:52→21:39)
[2017-06-01] MEDS: FLAGYL 500 MG/NS 500 MG/100 ML IVPB IV SCH ×3 (04:52→18:22)
[2017-06-01] MEDS: PROTONIX IV SCH ×2 (05:08→18:22)
[2017-06-01] MEDS: SODIUM CHLORIDE 0.9% INJ SCH (05:09)
[2017-06-01 05:51] LABS: BASO% 0.1 % (0.0-0.8); EOS# 0.05 X1000 (0.0-0.7); EOS% 0.6 % (0.0-10.0); HEMATOCRIT 35.2 % (42.0-52.0); HEMOGLOBIN 10.5 g/dL (14.0-18.0); IMM GRAN# 0.03 X1000 (0.0-0.04); IMM GRAN% 0.4 % (0.0-0.5); LYMPH% 6.3 % (20.5-51.1); MANUAL DIFF NEEDED? YES; MCH 23.6 PG (27-31); MCHC 29.8 g/dL (33-37); MCV 79.1 FL (81-99); MONO# 0.58 X1000 (0.11-0.59); MONO% 7.3 % (1.7-9.3); MPV 10.6 FL (7.4-10.4); NEUT% 85.3 % (42.2-75.2); PLT 169 X1000 (130-400); RBC 4.45 XMIL (4.7-6.1)
[2017-06-01] MEDS: HUMULIN R SUBQ SCH ×4 (06:20→20:10)
[2017-06-01 06:24] LABS: ALBUMIN 2.5 g/dL (3.5-5.0); CALCIUM 8.8 mg/dL (8.8-10.2); POTASSIUM 4.4 mmol/L (3.5-5.1); TOTAL BILIRUBIN 1.76 mg/dL (0.20-1.00); TOTAL PROTEIN 5.7 g/dL (6.3-8.3)
[2017-06-01 07:30] LABS: BANDS 4 % (0-1); LYMPHS 8 % (21-51); MONO 8 % (1-9)
[2017-06-01] MEDS: LANTUS SUBQ SCH (08:35)
[2017-06-01] MEDS: HEPARIN SUBQ SCH ×2 (08:36→20:10)
--- NOTE | 2017-06-01 09:06 | Diag Imaging Result Doc PS360 ---
CHEST-PORTABLE - 06/01/2017 INDICATION: respiratory failure TECHNIQUE: COMPARISON: 05/31/2017 FINDINGS: Stable significant cardiomegaly and pulmonary vascular congestion. No new or focal infiltrates. IMPRESSION: No change from prior. Electronically signed by Ovidio Enriquez 06/01/2017 9:03 AM
--- NOTE | 2017-06-01 09:21 | PROGRESS NOTE ---
DATE: 06/01/2017 SUBJECTIVE: This patient is still in a critical situation, even though he feels better. He is still having shortness of breath and he is still using the Ventimask to keep the oxygen saturation around 90. Family members at the bedside, his daughter. Pulmonary Department is following this patient closely as well. I have instructed the patient and the nurse to increase the water intake because this patient's sodium is elevated. Also he is having some insomnia, and I will start this patient on melatonin. His blood sugar is still high. He will receive his first dose of Lantus today. We will continue monitoring the blood sugar and using a sliding scale insulin. I checked the chest x-ray today, and it looks about the same compared with yesterday. OBJECTIVE: Vital Signs: Temperature 98.3 degrees, pulse 90, respiratory rate 28, blood pressure 96/71, oxygen saturation 94 on a Ventimask with 15% oxygen flow rate. HEENT: Head normocephalic. No trauma. PERRLA. Neck: Supple. No JVD. No masses. Central trachea. Chest: Decreased breath sounds globally with expiratory wheezing. Prolonged expiratory phase. Cardiovascular: RRR. No murmurs. Abdomen: Soft, mildly distended. Mild generalized tenderness to palpation, but is better. No signs of peritoneal irritation. Extremities: Trace lower extremity edema. No clubbing. No cyanosis. Neurological examination: The patient is alert. He is oriented x3 and following commands. He is answering my questions. LABORATORY: WBC 7.9, hemoglobin 10.5, hematocrit 35.2, platelets 169. Sodium 147, potassium 4.4, chloride 113, bicarbonate 24, BUN 57, creatinine 2. Glucose 268, calcium 8.8. Albumin 2.5. ASSESSMENT AND PLAN: 1. Septic shock. This patient has been resuscitated with fluids. We are keeping an eye on his blood pressure. Continue with antibiotics and monitoring this patient in the intensive care unit. White blood count stabilized. He is not having fever or chills. 2. Respiratory failure with hypoxia. This is the main issue. He has chronic obstructive pulmonary disease exacerbation. He is still wheezing and we are still using breathing treatment with DuoNebs, pulmonary toilet and oxygen. 3. Acute on chronic kidney disease. His BUN and creatinine are about the same compared with yesterday. We will continue to monitor. He needs to increase the amount of water. He is getting fluids with Clinimix and he is on a diet. 4. Type 2 diabetes. Today, we are going to start this patient on Lantus. We will continue monitoring the blood sugar and continue with sliding scale insulin. 5. Possible congestive heart failure. His proBNP is elevated, and it has been elevated before. Likely this is diastolic heart failure. We will continue to monitor. 6. Chronic obstructive pulmonary disease exacerbation as above. 7. History of subdural hematoma. Aware. 8. History of pulmonary embolism and paroxysmal atrial fibrillation. He has been on anticoagulation with Eliquis. We have stopped that medication and he is on heparin subcutaneously. Given his kidney injury, he is not in atrial fibrillation at this moment, and we did a lung perfusion scan that did not show any lesion subjective of embolism. 9. Deep vein thrombosis prophylaxis. Continue with heparin. 10. The patient is ce-hyt-mwbxyplaqls level 2. We can use only medication for this patient. No aggressive measures. No cardiopulmonary resuscitation, no cardioversion, no endotracheal tube or mechanical ventilation. 11. Insomnia. I will start this patient on melatonin. CRITICAL CARE TIME: 35 minutes. cc: Miguel Angel Franklin MD
[2017-06-01] MEDS: CLINIMIX E 4.25%-5% SOLUTION 1,000 ML IV SCH (13:35)
[2017-06-01] MEDS: D5W 1,000 ML IV SCH (13:35)
[2017-06-01] MEDS: LASIX IV SCH ×2 (13:35→19:40)
[2017-06-01] MEDS: PERFOROMIST NEB INH SCH ×2 (15:42→19:00)
[2017-06-01] MEDS: MELATONIN PO SCH (20:15)
[2017-06-02] MEDS: FLAGYL 500 MG/NS 500 MG/100 ML IVPB IV SCH ×6 (00:10→23:07)
[2017-06-02] MEDS: LASIX IV SCH (03:22)
[2017-06-02] MEDS: ZOSYN 3.375 GM in NS 50 ML IV SCH ×5 (03:22→20:32)
[2017-06-02] MEDS: DUONEB (A & A) INH SCH ×6 (03:30→23:05)
[2017-06-02] MEDS: SODIUM CHLORIDE 0.9% INJ SCH (05:45)
[2017-06-02] MEDS: PROTONIX IV SCH ×3 (05:45→18:08)
[2017-06-02 06:01] LABS: MANUAL DIFF NEEDED? NO
[2017-06-02] MEDS: HUMULIN R SUBQ SCH ×4 (06:14→20:31)
[2017-06-02 06:22] LABS: BASO% 0.1 % (0.0-0.8); EOS# 0.11 X1000 (0.0-0.7); EOS% 1.6 % (0.0-10.0); HEMATOCRIT 35.8 % (42.0-52.0); HEMOGLOBIN 10.5 g/dL (14.0-18.0); IMM GRAN# 0.03 X1000 (0.0-0.04); IMM GRAN% 0.4 % (0.0-0.5); LYMPH# 0.57 X1000 (1.2-3.4); LYMPH% 8.3 % (20.5-51.1); MCH 23.4 PG (27-31); MCHC 29.3 g/dL (33-37); MCV 79.7 FL (81-99); MONO# 0.48 X1000 (0.11-0.59); NEUT% 82.6 % (42.2-75.2); PLT 168 X1000 (130-400); RBC 4.49 XMIL (4.7-6.1)
[2017-06-02 06:41] LABS: ALBUMIN 2.5 g/dL (3.5-5.0); CALCIUM 7.9 mg/dL (8.8-10.2); MAGNESIUM 2.1 mg/dL (1.5-2.7); POTASSIUM 4.6 mmol/L (3.5-5.1); TOTAL BILIRUBIN 1.24 mg/dL (0.20-1.00); TOTAL PROTEIN 5.6 g/dL (6.3-8.3)
[2017-06-02] MEDS: PERFOROMIST NEB INH SCH ×2 (07:41→19:58)
[2017-06-02] MEDS: HEPARIN SUBQ SCH ×2 (08:01→20:31)
[2017-06-02] MEDS: LANTUS SUBQ SCH (08:02)
[2017-06-02] MEDS: CLINIMIX E 4.25%-5% SOLUTION 1,000 ML IV SCH (08:03)
[2017-06-02] MEDS: D5W 1,000 ML IV SCH (08:03)
[2017-06-02] MEDS ORDERED: LANTUS SUBQ SCH (08:26)
--- NOTE | 2017-06-02 08:48 | Diag Imaging Result Doc PS360 ---
CHEST-PORTABLE - 06/02/2017 INDICATION: respiratory failure TECHNIQUE: COMPARISON: 06/01/2017 FINDINGS: Stable cardiomegaly and pulmonary vascular congestion. No new or focal infiltrates. No pneumothorax or large effusion. IMPRESSION: No change from prior. Electronically signed by Ovidio Enriquez 06/02/2017 8:45 AM
--- NOTE | 2017-06-02 09:37 | PROGRESS NOTE ---
DATE: 06/02/2017 SUBJECTIVE: This patient looks a little bit better today. He is still tachypneic and he is still using a Venturi mask. Every time we try to remove the mask and put him on nasal cannula, his oxygen saturation drops really fast. His blood sugar has been elevated. He has been getting D5 as well so I will increase the dose of Lantus from 14-25. OBJECTIVE: Vital Signs: Temperature 97.2 degrees, pulse 66, respiratory rate 21, blood pressure 121/66, oxygen saturation 95% on Venturi mask. HEENT: Head normocephalic. No trauma. PERRLA. Neck: Supple. No JVD. No masses. Central trachea. Chest: Decreased breath sounds globally with expiatory wheezing. Prolonged expiatory phase. Cardiovascular: RRR. No murmurs. Abdomen: Soft. Mildly distended. Mild tenderness to palpation. No signs of peritoneal irritation. Extremities: No edema. No clubbing. No cyanosis. Neurological Examination: The patient is alert and oriented x3. He follows commands. He is answering my questions. Laboratory: WBC 6.8, hemoglobin 10.5, hematocrit 35.8, platelets 168,000. Sodium 144, potassium 4.6, chloride 109, bicarbonate 24, BUN 63, creatinine 2.3, glucose 334, calcium 7.9, albumin 2.5. ASSESSMENT AND PLAN: 1. Septic shock. This is improving. His blood pressure and WBC are stable. Urine culture and blood cultures so far negative. We will continue with the same treatment for now. No fever, no chills. 2. Respiratory failure with hypoxia. This is his main issue. He has chronic obstructive pulmonary disease exacerbation. He is still wheezing and we are still using breathing treatment with DuoNebs, pulmonary toilet, and oxygen. 3. Acute on chronic kidney disease. His BUN and creatinine are about the same compared with the previous days. We will continue to monitor. Continue with fluids. 4. Type 2 diabetes. I increased the dose of Lantus from 14-25. We will continue with the sliding scale insulin and monitoring his blood sugar. 5. Possible congestive heart failure. His proBNP is elevated and it has been elevated before. Likely this is diastolic heart failure. We will continue to monitor. 6. Chronic obstructive pulmonary disease exacerbation, as above. 7. History of subdural hematoma. Aware. 8. History of pulmonary embolism and paroxysmal atrial fibrillation. He has been on anticoagulation with Eliquis before the admission. We have stopped that medication and now he is on heparin subcutaneously, given his kidney injury. He is not in atrial fibrillation at this moment. We did a V/Q scan that did not show any lesions suggestive of embolism. 9. Deep vein thrombosis prophylaxis. Continue with heparin. 10. The patient is do not resuscitate level 2. We can use only medication for this patient. No aggressive measures. No cardiopulmonary resuscitation, no cardioversion, no endotracheal tube or mechanical ventilation. 11. Insomnia. Continue with melatonin. 12. Nutritional status. This patient is on Clinimix and diet but he is just tolerating some bites and up to 25% of his meal. CRITICAL CARE TIME: 35 minutes. cc: Miguel Angel Franklin MD
[2017-06-02] MEDS: MELATONIN PO SCH (20:31)
--- NOTE | 2017-06-02 23:36 | PROGRESS NOTE ---
DATE: 06/02/2017 SUBJECTIVE: The patient has been followed peripherally for recurrent rectal bleeding. In June 2016, the patient had initially presented with rectal bleeding. At that time, he was found to have a sigmoid mass in the colon on abdominal pelvic CT. However, prior to colonoscopy and planned further evaluation, he was found to have a subdural hematoma that required emergent treatment at [facility]. Unfortunately, the patient has been lost to followup since June 2016 as he stated he was not sure he wanted his colon evaluated. He states that he was tired of being sick and that he missed his who is now . This admission, the patient has had severe respiratory failure and continues to improve slowly. He has also been made DNR level 2. The patient states that he feels better. However, his daughter reports that he continues to have rectal bleeding. The family wants the bleeding and mass evaluated but the patient is not so sure. At this time though the patient continues to have severe respiratory difficulty and remains dependent on a Venturi mask. OBJECTIVE: On exam his blood pressure is 121/66, pulse is 72, respiration 26, temperature of 97.2 degrees. He continues to receive IV antibiotics for acute cholecystitis complicated by septic shock and right upper quadrant pain. On exam he is in no acute distress but is wearing a Venturi mask. The remainder of his exam was deferred. OBJECTIVE DATA: Reveals a hemoglobin of 10.5 with hematocrit of 35.8 and a white count of 6.85. He has 168,000 platelets. Sodium is 144, potassium 4.6, chloride 109, CO2 24, BUN 63, creatinine 2.3, glucose of 334. Calcium is 7.9, phosphorus 3.8, magnesium 2.1, total bilirubin 1.24, AST 23, ALT 14, alkaline phosphatase 100, total protein 5.6, albumin 2.5. RECOMMENDATION: 1. In light of the patient's poor respiratory tolerance, he is not an appropriate candidate for endoscopic intervention at this time. I would continue supportive care. 2. In the past the patient has stated that he did not want his colon evaluated. However, he is reconsidering this option. I recommend that he be fully recovered from his acute pulmonary insult prior to considering endoscopic intervention. 3. I agree with the antibiotics and conservative care for management of his right upper quadrant pain due to presumed acute cholecystitis. 4. We will follow the patient at a distance in light of his overall status. Please reconsult us if the patient decides to pursue endoscopic evaluation. cc: MD Dr. Lola Maurice MD MTDD
[2017-06-03] MEDS: CLINIMIX E 4.25%-5% SOLUTION 1,000 ML IV SCH ×3 (02:25→14:18)
[2017-06-03] MEDS: D5W 1,000 ML IV SCH ×2 (02:27→10:19)
[2017-06-03] MEDS: ZOSYN 3.375 GM in NS 50 ML IV SCH ×4 (02:29→20:29)
[2017-06-03] MEDS: DUONEB (A & A) INH SCH ×6 (03:04→22:31)
[2017-06-03] MEDS: FLAGYL 500 MG/NS 500 MG/100 ML IVPB IV SCH ×4 (04:34→22:28)
[2017-06-03] MEDS: PROTONIX IV SCH ×2 (05:00→16:00)
[2017-06-03] MEDS: SODIUM CHLORIDE 0.9% INJ SCH ×2 (05:00→16:00)
[2017-06-03 05:14] LABS: MANUAL DIFF NEEDED? NO
[2017-06-03 05:21] LABS: BASO% 0.2 % (0.0-0.8); EOS# 0.32 X1000 (0.0-0.7); EOS% 5.5 % (0.0-10.0); HEMATOCRIT 35.7 % (42.0-52.0); HEMOGLOBIN 10.5 g/dL (14.0-18.0); IMM GRAN# 0.04 X1000 (0.0-0.04); IMM GRAN% 0.7 % (0.0-0.5); LYMPH# 0.64 X1000 (1.2-3.4); LYMPH% 10.9 % (20.5-51.1); MCH 23.3 PG (27-31); MCHC 29.4 g/dL (33-37); MCV 79.3 FL (81-99); MONO# 0.49 X1000 (0.11-0.59); MONO% 8.4 % (1.7-9.3); MPV 9.9 FL (7.4-10.4); NEUT% 74.3 % (42.2-75.2); PLT 197 X1000 (130-400)
[2017-06-03 06:03] LABS: ALBUMIN 2.3 g/dL (3.5-5.0); CALCIUM 8.5 mg/dL (8.8-10.2); POTASSIUM 4.6 mmol/L (3.5-5.1); TOTAL BILIRUBIN 0.92 mg/dL (0.20-1.00); TOTAL PROTEIN 5.6 g/dL (6.3-8.3)
[2017-06-03] MEDS: HUMULIN R SUBQ SCH ×4 (06:08→20:19)
--- NOTE | 2017-06-03 07:24 | Diag Imaging Result Doc PS360 ---
EXAM: CHEST-PORTABLE HISTORY: respiratory failure TECHNIQUE: AP portable at 0500 COMMENT: There is cardiomegaly. There is increased pulmonary vascularity and interstitial pulmonary edema. Compared to the previous study of 06/02/2017 there has been no significant change. IMPRESSION: Pulmonary edema stable. Electronically signed by Wellington Mason 06/03/2017 7:21 AM
[2017-06-03] MEDS: PERFOROMIST NEB INH SCH (07:48)
[2017-06-03] MEDS ORDERED: INSULIN PEN NEEDLES ONE (08:45)
[2017-06-03] MEDS: HEPARIN SUBQ SCH ×2 (08:57→20:19)
[2017-06-03] MEDS: LANTUS SUBQ SCH (08:57)
--- NOTE | 2017-06-03 09:50 | PROGRESS NOTE ---
DATE: 06/03/2017 Mr. Floyd is an 86-year-old, white male, who is now hospital day 6. He is admitted with acute cholecystitis and cholelithiasis. He also had pulmonary dysfunction, and has been admitted to the ICU and we have treated his acute cholecystitis conservatively with IV antibiotics. Clinically, he seems to have improved. He still has work of breathing. His heart rate is 66-72. His blood pressure is 140/80, O2 saturation 99% on O2. He has a Rahman in place and his urine output is adequate. His sugars have been high from 259-331. His white blood cell count is normal. Hematocrit stable at 36%. Electrolytes are satisfactory except his BUN and creatinine are 64 and 1.9. His creatinine is down from 2.3. His total bilirubin is now normal as is all his liver function tests. He is receiving some IV nutrition. He continues to receive IV antibiotics. He is afebrile. He still has work of breathing. His diet is a mechanical soft diet with Glucerna shakes. cc: Shannon Robles MD
[2017-06-03] MEDS: LASIX IV SCH ×2 (10:46→21:29)
--- NOTE | 2017-06-03 11:22 | PROGRESS NOTE ---
DATE: 06/03/2017 SUBJECTIVE: This patient looks a little bit better today. We have stopped the Ventimask and he has been placed on nasal cannula. His oxygen saturation is around 90% with this. We will continue to monitor and probably we will put this patient back on his Ventimask. As per the patient, he is feeling better. He is still having work of breathing. His blood sugar has been elevated and high. I have increased his insulin Lantus from 25-35 units per day and I will continue with sliding scale insulin and pattern of blood sugar. Family members at the bedside, his daughter. All their questions were answered. OBJECTIVE: Vital Signs: Temperature 97.6 degrees, pulse 86, respiratory rate 16, blood pressure 87/74, oxygen saturation 99 on a Venturi mask but at this moment, he is on a nasal cannula. HEENT: Head normocephalic. No trauma. PERRLA. Neck: Supple. No JVD. No masses. Central trachea. Chest: Decreased breath sounds globally with expiratory wheezing, prolonged expiratory phase. Cardiovascular: RRR. No murmurs. Abdomen: Soft. Mildly distended. Mild tenderness to palpation. No signs of peritoneal irritation. Extremities: No edema. No clubbing. No cyanosis. Neurological Examination: The patient is alert and oriented x3. No focal deficits. Laboratory: WBC 5.8, hemoglobin 10.5, hematocrit 35.7, platelets 197,000. Sodium 143, potassium 4.6, chloride 106, bicarbonate 23, BUN 64, creatinine 1.9, glucose 311, calcium 8.5, albumin 2.3. ASSESSMENT AND PLAN: 1. Septic shock. This is improving but his blood pressure has been in the 80s and 90s. WBC has been stable and I do not see any fever or chills on this patient. Blood culture so far has been negative. He has a positive occult blood in the stool and gastroenterology department is following this patient already. His hemoglobin and hematocrit have been stable. 2. Respiratory failure with hypoxia. He is improving a little bit. We have switched the Ventimask for nasal cannula but his saturation is in the low 90s and when he talks or does any kind of movement, the saturation drops to the high 80s. He is still wheezing and still having some work of breathing. I will continue with DuoNebs, pulmonary toilet, and oxygen. 3. Acute on chronic kidney disease. BUN and creatinine are stable. Today, he looks a little bit better. Continue with intravenous fluids. His urine output looks fine. We will continue to monitor. 4. Type 2 diabetes. I increased his dose of Lantus from 25-35 and I will continue with sliding scale insulin and monitoring his blood sugar. 5. Possible congestive heart failure. Continue with the same management. 6. Chronic obstructive pulmonary disease exacerbation. As above. 7. History of subdural hematoma. Aware. 8. History of pulmonary embolism and paroxysmal atrial fibrillation. He has been on anticoagulation with Eliquis before admission. We have stopped that medication. Now, he is on heparin subcutaneously, given his kidney injury. He is not in atrial fibrillation at this moment. We did a V/Q scan that did not show any lesions suggestive of embolism. I think he is right upper quadrant pain is much better and I do not think he is going to get any kind of procedure like cholecystectomy so probably we need to start considering putting this patient back on his anticoagulation. 9. Deep venous thrombosis prophylaxis. Continue with heparin but probably we need to start thinking about putting this patient back on Eliquis. 10. Ny-otp-gvemblfpeqy level 2. We can use only medications for this patient. No aggressive measures. No cardiopulmonary resuscitation. No cardioversion. No endotracheal tube or ventilation. 11. Insomnia. Continue with melatonin. 12. Cholecystitis. I think this is getting better with antibiotics. Continue with the same treatment. 13. Nutritional status. This patient is on Clinimix and he is on a diet but he is tolerating just bites only, up to 25% of his food. CRITICAL CARE TIME: 35 minutes. cc: Miguel Angel Franklin MD
[2017-06-03] MEDS: MELATONIN PO SCH (20:21)
[2017-06-04] MEDS: ZOSYN 3.375 GM in NS 50 ML IV SCH ×4 (02:28→21:11)
[2017-06-04] MEDS: CLINIMIX E 4.25%-5% SOLUTION 1,000 ML IV SCH ×2 (02:36→14:04)
[2017-06-04] MEDS: DUONEB (A & A) INH SCH ×6 (03:20→23:06)
[2017-06-04] MEDS: PERFOROMIST NEB INH SCH ×3 (03:58→21:00)
[2017-06-04] MEDS: FLAGYL 500 MG/NS 500 MG/100 ML IVPB IV SCH ×3 (04:04→16:32)
[2017-06-04] MEDS: PROTONIX IV SCH ×2 (04:04→16:32)
[2017-06-04 05:39] LABS: HEMATOCRIT 35.2 % (42.0-52.0); HEMOGLOBIN 10.5 g/dL (14.0-18.0); MCH 23.8 PG (27-31); MCHC 29.8 g/dL (33-37); MCV 79.8 FL (81-99); MPV 9.3 FL (7.4-10.4); RBC 4.41 XMIL (4.7-6.1)
[2017-06-04] MEDS: HUMULIN R SUBQ SCH ×4 (06:08→21:12)
[2017-06-04 06:10] LABS: ALBUMIN 2.4 g/dL (3.5-5.0); CALCIUM 8.5 mg/dL (8.8-10.2); POTASSIUM 4.4 mmol/L (3.5-5.1); TOTAL BILIRUBIN 0.83 mg/dL (0.20-1.00); TOTAL PROTEIN 5.6 g/dL (6.3-8.3)
--- NOTE | 2017-06-04 07:22 | Diag Imaging Result Doc PS360 ---
EXAM: CHEST-PORTABLE INDICATION: respiratory failure TECHNIQUE: One view COMPARISON: 06/03/2017 FINDINGS: Interstitial edema and pulmonary venous congestion is again noted. There is probably some improvement at the left lung base. The right lung is stable. No new consolidation is appreciated cardiac silhouette is stable. IMPRESSION: Slight interval improvement on the left. Otherwise stable. Electronically signed by Kelvin Babb 06/04/2017 7:19 AM
[2017-06-04] MEDS: HEPARIN SUBQ SCH ×2 (08:04→21:11)
[2017-06-04] MEDS: LANTUS SUBQ SCH (08:05)
[2017-06-04] MEDS ORDERED: LANTUS SUBQ ONE (08:24)
[2017-06-04] MEDS ORDERED: LANTUS SUBQ SCH (08:24)
--- NOTE | 2017-06-04 10:07 | PROGRESS NOTE ---
DATE: 06/04/2017 SUBJECTIVE: Family is at bedside, patient is sleepy. According to the family, he has been sleepy for the last few days. Denies any fever, chills. OBJECTIVE: Vital Signs: Temperature 97.9 degrees, heart rate 77, respiratory rate 24, blood pressure 105/65, O2 saturation 95% on 6 L nasal cannula. General Examination: This is a chronically ill-looking, frail, 86-year-old male, lying in bed in no acute distress. HEENT: Head is normocephalic, atraumatic. Anicteric sclerae and pale conjunctivae. Mucous membranes moist. Neck: Supple. No JVD noted. No carotid bruits. No lymphadenopathy. No thyromegaly. Cardiovascular exam: S1 and S2 heard. No murmurs, gallops, or rubs. Regular rate and rhythm. Respiratory exam: Decreased breath sounds globally with expiatory wheezing mostly noted in both bases. Patient is not using any accessory muscles or having work of breathing. Abdomen: Soft, a little bit distended. No signs of peritoneal irritation. Extremities: No clubbing, cyanosis or edema. Peripheral pulses present in both legs. Neurological exam: Patient is sleepy, but responds to verbal stimuli. Moves 4 extremities. LAB/X-RAY DATA: White cell count 5.28 with BMP that shows creatinine 1.8 and BUN 64 and glucose 265. X-ray from today shows slight interval improvement on the left, otherwise stable. ASSESSMENT AND PLAN: 1. Septic shock. Blood pressure is in the range of 100. He is not on any vasopressors. As per family, they report that the patient is on lisinopril 5 mg oral daily at home. Blood pressure most of the time is in the 1-tens and 1-twenties at maximum. The blood cultures that we have checked are so far negative, including also urine culture. At this point, we will continue monitoring this patient closely. 2. Acute respiratory failure with hypoxia. He was using Ventimask most of the time, but today we are trying nasal cannula 6 L/minute and the oxygen saturation is 95 most of the time. At this point, we are going to continue with the same management at home; he is on 3 L/minute because of chronic obstructive pulmonary disease. We are going to try to wean off oxygen as possible. 3. Chronic obstructive pulmonary disease exacerbation. Patient is on DuoNeb every 4 hours as scheduled and every 2 hours as needed. We are going to continue with the same management. 4. Acute on chronic kidney disease. BUN and creatinine are stable. The patient is not on any normal saline. He is on Clinimix at 100 mL/hour. We will continue with the same management. 5. Diabetes type 2. Patient has been started on Lantus 25 yesterday that was increased to 35. According to the family, he used 64 units of Lantus. So, considering that he is not eating completely good as he was doing at home, I prefer to increase the doses of Lantus to 45. Continue checking Accu-Chek before meals and also at bedtime. If this patient is more awake tomorrow and eats okay, we are going to restart home doses of Lantus. 6. History of subdural hematoma, aware. 7. History of pulmonary embolism and paroxysmal atrial fibrillation. Patient was on Eliquis before admission. This medication was stopped because of kidney injury. He is not on anticoagulation at this moment, and the lung perfusion scan that we did here did not show any suggestion of pulmonary embolism. So, at this point, in anticipation for possible cholecystectomy, the patient has been put on heparin. I prefer to continue with this medication by now and, when the patient is more awake and alert, we can restart Eliquis. 8. Cholecystitis. The patient has been seen by surgery and they decided to do medical treatment only. Patient currently is on Zosyn and metronidazole and he is doing okay. We will continue with same management. 9. Nutritional status. Patient is on Clinimix. He is also on a diet, but he is eating a little bit. We will continue with the same management. 10. Insomnia. We will continue with melatonin. 11. Deep vein thrombosis prophylaxis. Patient currently is on heparin. We will continue with the same management by now. CRITICAL CARE TIME: 45 minutes. cc: Maninder Harvey MD
[2017-06-04] MEDS ORDERED: LASIX IV ONE (18:47)
[2017-06-04] MEDS: PRAVACHOL PO SCH (21:11)
[2017-06-04] MEDS: KEPPRA PO SCH (21:11)
[2017-06-04] MEDS: MELATONIN PO SCH (21:11)
[2017-06-05] MEDS: CLINIMIX E 4.25%-5% SOLUTION 1,000 ML IV SCH ×2 (01:18→14:29)
[2017-06-05] MEDS: FLAGYL 500 MG/NS 500 MG/100 ML IVPB IV SCH ×5 (01:18→23:18)
[2017-06-05] MEDS: ZOSYN 3.375 GM in NS 50 ML IV SCH ×4 (02:52→21:34)
[2017-06-05] MEDS: DUONEB (A & A) INH SCH ×6 (03:36→22:58)
[2017-06-05] MEDS: PROTONIX IV SCH ×2 (05:16→16:17)
[2017-06-05] MEDS: HUMULIN R SUBQ SCH ×4 (06:03→21:34)
[2017-06-05 06:13] LABS: CALCIUM 8.1 mg/dL (8.8-10.2); POTASSIUM 4.9 mmol/L (3.5-5.1)
[2017-06-05] MEDS: PERFOROMIST NEB INH SCH (07:32)
--- NOTE | 2017-06-05 07:48 | Diag Imaging Result Doc PS360 ---
CHEST-PORTABLE - 06/05/2017 INDICATION: respiratory failure TECHNIQUE: COMPARISON: 06/04/2017 FINDINGS: Stable cardiomegaly and pulmonary vascular congestion. No new or significant infiltrates. No pneumothorax or large effusion. IMPRESSION: Cardiomegaly and pulmonary vascular congestion. Electronically signed by Ovidio Enriquez 06/05/2017 7:45 AM
[2017-06-05] MEDS: HEPARIN SUBQ SCH ×2 (08:47→21:34)
[2017-06-05] MEDS: KEPPRA PO SCH ×2 (08:47→21:34)
[2017-06-05] MEDS: VITAMIN B-12 PO SCH (08:47)
[2017-06-05] MEDS: PRINIVIL PO SCH (08:47)
[2017-06-05] MEDS ORDERED: LANTUS SUBQ ONE (08:55)
[2017-06-05] MEDS: LANTUS SUBQ SCH (09:08)
--- NOTE | 2017-06-05 10:28 | PROGRESS NOTE ---
DATE: 06/05/2017 SUBJECTIVE: Patient is more awake. He denies any complaint today. According to the family who is at bedside, he is doing fine. OBJECTIVE: Vital Signs: Temperature 96.1 degrees, heart rate 62, respiratory 24, blood pressure 89/47, O2 saturation 95% on 3 L nasal cannula. General Examination: This is a chronically ill- looking and frail 86-year-old male, lying in bed, in no acute distress. HEENT: Head is normocephalic, atraumatic. Neck: Supple. No JVD noted. Cardiovascular Exam: S1, S2 heard. No murmurs, gallops, or rubs. Regular rate and rhythm. Respiratory: Decreased breath sounds globally with some expiatory wheezing mostly noted in both bases, similar in comparing with yesterday. Patient is not using any accessory muscles or heavy work of breathing. Abdomen: Soft, a little bit distended, but there is no signs of peritoneal irritation. Extremities: No clubbing, cyanosis, or edema. Peripheral pulses present in both legs. Neurological: Patient is a little bit more awake today. Follow commands. He is not oriented to time and place. He is oriented to person. LABORATORY DATA: BMP shows creatinine 1.8 with BUN of 58, and blood sugars of 270. ASSESSMENT/PLAN: 1. Septic shock. That condition is almost resolved. The blood pressure most of the time is a systolic blood pressure above 100 and above. There is just one reading that is 89 this morning. Of course, he is not on any vasopressors. At this point, we are going to continue with the same management. Currently, patient is on lisinopril 5 at home. We have continued with that medication. Patient is not on any IV fluids. Actually, he has received 1 dose of Lasix 40 mg IV yesterday as per Dr. Mccoy. Will follow his recommendations. 2. Acute hypoxic respiratory failure. His oxygen needs are a little bit more stable. He was using 6 liters of oxygen by nasal cannula yesterday. He did not use any Ventimask. At home, he uses 3 L of oxygen by nasal cannula. At this point, we are going to continue with the same oxygen supplementation. We tried to wean off if possible. 3. Chronic obstructive pulmonary disease exacerbation. Patient is on DuoNeb every 4 hours and also every 2 hours as needed for shortness of breath. We are going to continue with the same management. 4. Acute on chronic kidney disease. The BUN and creatinine, during the last 3 days, has been around the same number. We will continue checking BMP daily. 5. Diabetes mellitus type 2. Even though we have increased the dose of Lantus to 45 units yesterday, the blood sugars are still high. So we are planning to restart full home doses of Lantus which is 64 units daily. We will keep checking Accu-Cheks before meals and also at bedtime. 6. History of pulmonary embolism. Patient was on Eliquis on admission, but he was changed to heparin drip on anticipation for possible surgery. I prefer to continue with this medication until the patient is ready to go and then will switch it to Eliquis. 7. Acute cholecystitis. Patient has been evaluated by the surgeon, and they decided to do medical treatment only. White cell count is back to normal. Patient is on Zosyn and metronidazole. We will continue with the same management. 8. Nutritional status. Patient is not eating well enough. We will continue with Clinimix as nutritional support. 9. Insomnia. We will continue with melatonin. 10. Deep vein thrombosis prophylaxis. Actually, patient is on heparin drip. 11. History of pulmonary embolism. We will continue with the same management. 12. Paroxysmal atrial fibrillation. By now, the patient is in sinus rhythm. We will continue with telemetry. 13. Sigmoid mass. Patient has this problem and he has been seen by GI Dr. Cee. Because of his respiratory status he is not a candidate to any procedure yet. As soon as he recovers and is back to his baseline oxygen needs we may need to reconsult Dr. Cee to see if he can have a colonoscopy here in the hospital or as an outpatient. cc: Maninder Harvey MD MTDD
[2017-06-05] MEDS ORDERED: LASIX IV ONE (20:05)
[2017-06-05] MEDS: PRAVACHOL PO SCH (21:34)
[2017-06-05] MEDS: MELATONIN PO SCH (21:34)
[2017-06-06] MEDS: CLINIMIX E 4.25%-5% SOLUTION 1,000 ML IV SCH ×4 (01:05→15:04)
[2017-06-06] MEDS: ZOSYN 3.375 GM in NS 50 ML IV SCH ×4 (02:22→20:57)
[2017-06-06] MEDS: DUONEB (A & A) INH SCH ×6 (03:00→23:27)
[2017-06-06] MEDS: FLAGYL 500 MG/NS 500 MG/100 ML IVPB IV SCH ×4 (04:41→23:04)
[2017-06-06] MEDS: HUMULIN R SUBQ SCH ×4 (06:03→20:58)
[2017-06-06] MEDS: PROTONIX IV SCH ×2 (06:03→16:56)
[2017-06-06 06:09] LABS: POTASSIUM 5.5 mmol/L (3.5-5.1)
--- NOTE | 2017-06-06 07:36 | Diag Imaging Result Doc PS360 ---
CHEST-PORTABLE - 06/06/2017 INDICATION: respiratory failure TECHNIQUE: COMPARISON: 06/05/2017 FINDINGS: Stable cardiomegaly and significant pulmonary vascular congestion. There is probably some hazy interstitial pulmonary edema in the bases. No pneumothorax or large effusion. IMPRESSION: No change from prior. Electronically signed by Ovidio Enriquez 06/06/2017 7:34 AM
[2017-06-06] MEDS: PERFOROMIST NEB INH SCH ×2 (07:45→23:27)
[2017-06-06] MEDS ORDERED: INSULIN PEN NEEDLES ONE (08:25)
[2017-06-06] MEDS: KEPPRA PO SCH ×2 (08:27→21:35)
[2017-06-06] MEDS: VITAMIN B-12 PO SCH (08:27)
[2017-06-06] MEDS: PRINIVIL PO SCH (08:27)
[2017-06-06] MEDS: LANTUS SUBQ SCH (08:28)
[2017-06-06] MEDS: HEPARIN SUBQ SCH ×2 (08:28→20:57)
[2017-06-06] MEDS ORDERED: VELTASSA PO ONE ×2 (08:59→15:00)
--- NOTE | 2017-06-06 09:32 | PROGRESS NOTE ---
DATE: 06/06/2017 SUBJECTIVE: Patient is awake, answers questions appropriately. As per nursing staff, today at 3 to 4 a.m., he started pulling out the nasal cannula. Oxygen saturation started to drop. Now he is using a Ventimask. OBJECTIVE: Vital Signs: Temperature 97.0 degrees, heart rate 77, respiratory 16, blood pressure 102/54, O2 saturation 91% on 6 L nasal cannula. General Examination: This is a chronically ill- looking, and frail, 86-year-old male, lying in bed, in no acute distress. HEENT: Head is normocephalic, atraumatic. Neck: Supple. No JVD noted. No carotid bruits. Cardiovascular: S1, S2 heard. No murmurs, gallops, or rubs. Regular rate and rhythm. Respiratory: Decreased breath sounds globally. Some respiratory wheezing still present but better in comparing with yesterday. Patient is not using any accessory muscles or having work of breathing. Abdomen: Soft, nontender to palpation. Bowel sounds present. No organomegaly. No signs of peritoneal irritation. Extremities: No clubbing, cyanosis, or edema. Peripheral pulses present in both legs. Neurological: Patient is a awake although a little bit sleepy. Follows commands. He is oriented in person only. LABORATORY DATA: BMP shows potassium 5.5, with creatinine 1.5. ASSESSMENT AND PLAN: 1. Septic shock. This condition is resolved. Blood pressure is most of the time 100 and above. Family reports that his blood pressure is around that range most of the time. The patient has been started 2 days ago on lisinopril 5 mg which is a home medication. Patient is doing fine. We have checked ins and outs today that balance from today is 1.7 L negative. He has made 2.7 L of urine yesterday and same amount yesterday. At this point, we are going to continue with the same management. 2. Acute hypoxic respiratory failure. Unfortunately, the patient overnight started pulling out nasal cannula so that is why the oxygen saturation started to drop. Now upon my examination, he was using Ventimask, and I instructed the nurse to use nasal cannula a 6 L of oxygen and O2 saturation is 91 or 92 most of the time. At home he uses 3 L of oxygen by nasal cannula. Will continue with same management. 3. Chronic obstructive pulmonary disease exacerbation. Patient is receiving DuoNeb every 4 hours and also every 2 hours as needed for shortness of breath. He is not complaining of any shortness of breath at rest. We will continue with the same management. 4. Acute on chronic kidney disease. So far from admission when the creatinine was 2.3 now is 1.5 which definitely looks like a good improvement. We will continue checking BMP daily. 5. Diabetes mellitus type 2. The sugar has been high even though we have increased the doses of Lantus recently. Family reports that he used 64 units of Lantus at home so this is the dose that he is going to receive today. We will continue checking blood sugars before meals and also at bedtime. We will readjust the doses of Lantus accordingly. 6. History of pulmonary embolism. Patient was on Eliquis as a home medication but was changed to heparin in anticipation for possible surgery. At this time, we will continue with the same heparin while this patient in the hospital and when the patient is ready to leave the hospital we will switch to Eliquis. 7. Acute cholecystitis. Evaluated by Surgery. They decided medical treatment only. The patient is on Zosyn and metronidazole. The blood cultures are negative. At this point, we are going to continue with the same management. 8. Nutritional status. We will continue with Clinimix because patient is not eating well enough. 9. Insomnia. We will continue with melatonin. 10. Paroxysmal atrial fibrillation. Patient continues to be in sinus rhythm. 11. Sigmoid mass. As we mentioned before, Dr. Cee from GI has evaluated this patient. Because of his respiratory status he is not a candidate for any procedure yet. Will see if he can have this colonoscopy as an outpatient versus here in the hospital. 12. Disposition. Patient is going to stay in the [facility] unit because of his high oxygen requirements. 13. Code status. DNR level 2. cc: Maninder Harvey MD
[2017-06-06] MEDS: SODIUM CHLORIDE 0.9% INJ SCH (16:56)
[2017-06-06] MEDS ORDERED: SOLU-MEDROL IV ONE (18:25)
[2017-06-06 19:01] LABS: ALLEN TEST YES; BE 8.7 mmoll (-3.0-3.0); BLOOD TYPE ARTERIAL; DRAW SITE R RADIAL; METHB 1.3 % (0.0-1.5); O2(CT) 15.6 mL/dL (15.0-23.0); PO2(98.6) 235 mmHg (60-100); SAMPLE BLOOD; SAO2 99.5 % (95.0-100.0); THB 11.1 g/dL (11.5-17.4); pH(98.6) 7.37 (7.35-7.45)
[2017-06-06 19:02] LABS: MODALITY NRB; PCO2(98.6) 62 mmHg (35-45)
--- NOTE | 2017-06-06 19:13 | Diag Imaging Result Doc PS360 ---
EXAM: CHEST-PORTABLE HISTORY: respiratory distress TECHNIQUE: COMPARISON: Compared to study performed 5:00 AM FINDINGS: The overall appearance of the chest is not improved compared to the prior exam with basilar infiltrates and likely left pleural effusion in addition to cardiomegaly. There are scattered granuloma. IMPRESSION: No interval improvement. Infiltrates in the right base may in fact be slightly more pronounced than the film taken earlier. Electronically signed by Stanford Trevizo 06/06/2017 7:11 PM
[2017-06-06] MEDS: LASIX IV SCH (20:57)
[2017-06-06] MEDS: MELATONIN PO SCH (21:35)
[2017-06-06] MEDS: PRAVACHOL PO SCH (21:36)
[2017-06-07] MEDS: ZOSYN 3.375 GM in NS 50 ML IV SCH ×4 (02:34→21:54)
[2017-06-07] MEDS: SOLU-MEDROL IV SCH ×3 (02:35→21:49)
[2017-06-07] MEDS: DUONEB (A & A) INH SCH ×6 (03:37→22:52)
[2017-06-07] MEDS: PROTONIX IV SCH ×2 (04:48→16:05)
[2017-06-07] MEDS: FLAGYL 500 MG/NS 500 MG/100 ML IVPB IV SCH (04:48)
[2017-06-07 05:29] LABS: BASO% 0.1 % (0.0-0.8); EOS# 0.01 X1000 (0.0-0.7); EOS% 0.1 % (0.0-10.0); HEMATOCRIT 37.6 % (42.0-52.0); HEMOGLOBIN 11.6 g/dL (14.0-18.0); IMM GRAN# 0.06 X1000 (0.0-0.04); IMM GRAN% 0.8 % (0.0-0.5); LYMPH# 0.39 X1000 (1.2-3.4); LYMPH% 5.5 % (20.5-51.1); MANUAL DIFF NEEDED? YES; MCH 23.7 PG (27-31); MCHC 30.9 g/dL (33-37); MCV 76.7 FL (81-99); MONO# 0.06 X1000 (0.11-0.59); MONO% 0.8 % (1.7-9.3); MPV 9.4 FL (7.4-10.4); NEUT% 92.7 % (42.2-75.2); PLT 327 X1000 (130-400)
[2017-06-07 05:53] LABS: CALCIUM 8.8 mg/dL (8.8-10.2); POTASSIUM 5.1 mmol/L (3.5-5.1)
[2017-06-07] MEDS: HUMULIN R SUBQ SCH (06:22)
[2017-06-07 07:18] LABS: LYMPHS 4 % (21-51)
--- NOTE | 2017-06-07 07:25 | Diag Imaging Result Doc PS360 ---
EXAM: CHEST-PORTABLE HISTORY: respiratory failure TECHNIQUE: Portable AP COMPARISON: 06/06/2017 FINDINGS: The lungs are well expanded. The heart is not enlarged. There are infiltrates and atelectasis in the left base. There is been partial clearing in the right base. The apices remain clear. There is a small left pleural effusion. IMPRESSION: Slight interval improvement. Electronically signed by Stanford Trevizo 06/07/2017 7:22 AM
[2017-06-07] MEDS: PERFOROMIST NEB INH SCH ×2 (07:38→20:05)
[2017-06-07] MEDS: LASIX IV SCH ×2 (08:14→21:35)
[2017-06-07] MEDS: LANTUS SUBQ SCH (08:14)
[2017-06-07] MEDS: HEPARIN SUBQ SCH ×2 (08:15→21:35)
[2017-06-07] MEDS: PRINIVIL PO SCH (08:23)
[2017-06-07] MEDS: VITAMIN B-12 PO SCH (08:24)
[2017-06-07] MEDS: KEPPRA PO SCH (08:24)
[2017-06-07] MEDS ORDERED: LASIX IV ONE (09:04)
[2017-06-07] MEDS ORDERED: CYANOCOBALAMIN IM SCH (09:15)
[2017-06-07] MEDS: TEFLARO 600 MG in NS 250 ML IV SCH ×2 (09:27→22:22)
[2017-06-07] MEDS: KEPPRA 500 MG in NS 100 ML IV SCH ×2 (09:54→21:35)
[2017-06-07 10:35] LABS: ALLEN TEST YES; BE 6.2 mmoll (-3.0-3.0); BLOOD TYPE ARTERIAL; DRAW SITE R RADIAL; METHB 0.8 % (0.0-1.5); O2(CT) 15.5 mL/dL (15.0-23.0); PCO2(98.6) 46 mmHg (35-45); PO2(98.6) 81 mmHg (60-100); SAMPLE BLOOD; SAO2 97.5 % (95.0-100.0); THB 11.5 g/dL (11.5-17.4); pH(98.6) 7.44 (7.35-7.45)
[2017-06-07 10:36] LABS: MODALITY BI PAP
--- NOTE | 2017-06-07 10:38 | PROGRESS NOTE ---
DATE: 06/07/2017 SUBJECTIVE: Just around 6 p.m., patient started to desaturate, so he was started on BiPAP and also he was started on Solu-Medrol 40 mg IV q.8 hours. Overnight, he was using BiPAP machine. Today upon my examination, he looks more sleepier, although he follow commands. OBJECTIVE: Vital Signs: Temperature 96.4 degrees, heart rate 80, respiratory rate 20, blood pressure 128/70, O2 saturation 96% on BiPAP machine. General: This is a chronically ill-looking and frail 86-year-old male, lying in bed, in no acute distress wearing a BiPAP mask. HEENT: Head is normocephalic and atraumatic. Neck: Supple. No JVD noted. No carotid bruits. Cardiovascular: S1, S2 heard. No murmurs, gallops, or rubs. Regular rate and rhythm. Respiratory: Decreased breath sounds globally with some wheezing still present in both pulmonary gagnon. Also mild crackles in both bases. Patient is not using any accessory muscles or having work of breathing. Abdomen: Soft, nontender to palpation. Bowel sounds present. No organomegaly. No signs of peritoneal irritation. Stoner negative. Extremities : No clubbing, cyanosis, or edema. Peripheral pulses present in both legs. Neurological: Patient is more sleepier today, although follows commands. He is disoriented. LABORATORY DATA: White cell count 7.15 with hemoglobin 11.6, hematocrit 37.6, platelets 327,000. BMP shows creatinine 1.6, and BUN 62. ASSESSMENT/PLAN: 1. Septic shock secondary to pneumonia. This condition has resolved. Blood pressure is above 100 all the time, and family reports actually that this is the blood pressure he managed at home. He has been started on lisinopril which is a home medication, and he is maintaining that blood pressure. He is not on any IV fluids. We are going to continue monitoring this patient closely with vitals every 6 hours. 2. Acute hypoxemic-hypercarbic respiratory failure. Yesterday, he started to desaturate, so he was started on BiPAP, and ABG at that time was checked, which shows a CO2 of 62 with normal pH of 7.37. BiPAP was started immediately. We are going to check an ABG today and tomorrow. By now, if the CO2 is down, probably may need to try Ventimask and see how he does. 3. Chronic obstructive pulmonary disease exacerbation. Patient is on DuoNeb every 4 hours and also every 2 hours as needed. Physical examination still disclosed some wheezing. The patient not able to answer if he is short of breath or not. At this point, we are going to continue with the same management. 4. Community-acquired pneumonia. The x-ray actually from today shows an improvement in the infiltrate on the right side, but in the left side, it is still the same. The white cell count is okay, and he was on Zosyn for this condition and also for cholecystitis. I prefer to add more antibiotic coverage with Teflaro for gram-positive bacteria and possible methicillin- resistant Staphylococcus aureus. 5. Acute on chronic kidney disease. That condition is stable. From yesterday to today, there has not been any change in the creatinine. Will continue to check BMP daily. 6. Diabetes mellitus type 2. Even though he is not eating okay, but he is on Clinimix, blood sugar has been really high. We had restarted his usual doses of Lantus, which is 64 units daily, but glucose persists to be over 300 all the time. We are going to increase to 80 units today. We will see how he does. 8. History of pulmonary embolism. Patient was initially on Eliquis, as a home medication, but will change it to heparin patient for possible surgery for cholecystitis. At this time, he is on heparin, but the dose is for DVT prophylaxis. Patient is not able to take any pills today. We are going to continue with the same management. 9. Acute cholecystitis. Evaluated by surgery. Did recommend medical treatment only. He is on Zosyn. We will continue with the same management. Blood culture has been negative so far. 10. Nutritional status. Because Clinimix that is running over 100 mL per hour, that is producing some volume overload, I prefer to hold it for today. The patient is not able to eat. I have talked with the family and explained to them that we need to hold it for one day, and see if that improves respiratory status. Also, we have talked about possible PEG tube if this patient is not able to eat or barium swallow shows choking. In any case, we are going to hold Clinimix. We will see how he does tomorrow. 11. Insomnia. We will continue with melatonin. 12. Paroxysmal atrial fibrillation. The patient is in sinus rhythm now. 13. Sigmoid mass. We have mentioned before that Dr. Cee has evaluated this patient and because of his respiratory status, he is not a candidate for the procedure yet like a colonoscopy. So if he improves, we may need to call GI again or we can schedule this procedure as an outpatient. 14. Disposition. The patient is not doing good. Actually, his oxygen needs are getting higher. He is not stable. He is DNR level 2. So, we are not going to intubate, even if he needed it. So we are going to monitor this patient closely here in the [facility]. 15. Code status. DNR level 2. CRITICAL CARE TIME: 50 minutes. cc: Maninder Harvey MD MTDD
[2017-06-07] MEDS: HUMALOG SUBQ SCH ×3 (11:16→21:49)
[2017-06-07] MEDS: MELATONIN PO SCH (21:35)
[2017-06-07] MEDS: PRAVACHOL PO SCH (21:35)
[2017-06-08] MEDS: DUONEB (A & A) INH SCH ×6 (03:40→23:57)
[2017-06-08] MEDS: SOLU-MEDROL IV SCH ×3 (04:06→21:01)
[2017-06-08] MEDS: PROTONIX IV SCH ×2 (04:06→16:06)
[2017-06-08] MEDS: ZOSYN 3.375 GM in NS 50 ML IV SCH ×4 (04:06→21:16)
[2017-06-08 05:13] LABS: ALLEN TEST YES; BE 7.3 mmoll (-3.0-3.0); BLOOD TYPE ARTERIAL; DRAW SITE R RADIAL; METHB 1.1 % (0.0-1.5); O2(CT) 14.2 mL/dL (15.0-23.0); PO2(98.6) 81 mmHg (60-100); SAMPLE BLOOD; SAO2 98.1 % (95.0-100.0); THB 10.6 g/dL (11.5-17.4)
[2017-06-08 05:14] LABS: PCO2(98.6) 54 mmHg (35-45)
[2017-06-08 05:15] LABS: MODALITY VENTIMASK
[2017-06-08 05:43] LABS: HEMATOCRIT 33.9 % (42.0-52.0); HEMOGLOBIN 10.3 g/dL (14.0-18.0); IMM GRAN# 0.03 X1000 (0.0-0.04); IMM GRAN% 0.3 % (0.0-0.5); LYMPH# 0.48 X1000 (1.2-3.4); LYMPH% 4.6 % (20.5-51.1); MANUAL DIFF NEEDED? YES; MCH 23.4 PG (27-31); MCHC 30.4 g/dL (33-37); MCV 76.9 FL (81-99); MONO# 0.19 X1000 (0.11-0.59); MONO% 1.8 % (1.7-9.3); MPV 9.7 FL (7.4-10.4); NEUT% 93.3 % (42.2-75.2); PLT 391 X1000 (130-400); RBC 4.41 XMIL (4.7-6.1)
[2017-06-08 06:23] LABS: CALCIUM 8.3 mg/dL (8.8-10.2); POTASSIUM 4.6 mmol/L (3.5-5.1)
[2017-06-08] MEDS: HUMALOG SUBQ SCH ×4 (06:29→21:06)
--- NOTE | 2017-06-08 07:28 | Diag Imaging Result Doc PS360 ---
EXAM: CHEST-PORTABLE HISTORY: respiratory failure TECHNIQUE: AP portable erect at 0555 COMMENT: There is cardiomegaly. The appearance of the chest has not changed significantly since 06/07/2017, or 06/06/2017. Possibility of mild interstitial pulmonary edema cannot be excluded. IMPRESSION: Cardiomegaly and mild pulmonary edema. Electronically signed by Wellington Mason 06/08/2017 7:26 AM
[2017-06-08] MEDS: PERFOROMIST NEB INH SCH ×2 (07:34→19:46)
--- NOTE | 2017-06-08 07:41 | PROGRESS NOTE ---
DATE: 06/08/2017 SUBJECTIVE: As per nursing staff, has refused BiPAP for this patient. She has checked with a relative who is a nurse and she said that this patient does not need BiPAP so she refused for this patient to use it here. No other issues as per nursing staff. He was using Ventimask overnight most of the time. OBJECTIVE: Vital Signs: Temperature 96.9 degrees, heart rate 64, respiratory 19, blood pressure 100/54, O2 saturation 95% on Venturi mask. General Examination: This is a chronically ill- looking and frail, 86-year-old male, lying in bed, in no acute distress wearing a BiPAP mask. HEENT: Head is normocephalic, atraumatic. Neck: Supple. No JVD noted. No carotid bruits. Cardiovascular: S1, S2 heard. No murmurs, gallops, or rubs. Regular rate and rhythm. Respiratory: Decreased breath sounds globally. There is still some wheezing present in both pulmonary gagnon and also crackles but patient is not using any accessory muscles or having work of breathing at this time. Abdomen: Soft, nontender to palpation. Bowel sounds present. No organomegaly. No signs of peritoneal irritation. Stoner's negative. Extremities: No clubbing, cyanosis, or edema. Peripheral pulses present in both legs. Neurological: Patient is basically sleepy but the same in comparing with yesterday. Follow commands. He is disoriented to place and time. LABORATORY DATA: White cell count 10.48, hemoglobin 10.3, hematocrit 33.9, platelets 391,000, ABG shows pH 7.4, pCO2 of 54. PO2 81. BMP remarkable for BUN 69, creatinine 1.8, and blood sugars 278. ASSESSMENT AND PLAN: 1. Community-acquired pneumonia. Today, the patient actually is receiving the same antibiotic coverage for this condition. We have started this patient yesterday on home cefazolin. Also, he is already on Zosyn. Oxygen-modi, he is requiring the same amount of oxygen by Ventimask. We are going to continue also with breathing treatments every 4 hours and every 2 hours p.r.n. 2. Acute hypoxemic hypercarbic respiratory failure. The day before yesterday, he started to desaturate, so he was started on BiPAP. ABG showed CO2 initially of 62, and then yesterday after he used the BiPAP, the CO2 dropped to normal limits. I have talked with the about this finding and I told her that this could be secondary to volume overload. We have held the Clinimix that was running at 100 mL/h and we started Lasix 40 mg IV twice daily. Oxygen needs are basically the same, but on the CO2 is high this morning and apparently, as we mentioned above, refused to use BiPAP for this patient because she was informed by a relative who is a nurse that this patient does not need it. We are going to explain to the family that if they refuse BiPAP, his condition may deteriorate. Considering that his code status is DNR level 2, we are not going to be intubate him. 3. Chronic obstructive pulmonary disease exacerbation. We will continue with nebulization with DuoNeb every 4 hours as schedule and also every 2 hours as needed. The patient is still having some wheezing but is better in comparing with previous days. We will continue with the same management. 4. [id number] kidney disease. Creatinine had seen at his baseline. We will continue with the checking BMP daily. 5. Diabetes mellitus type 2. Clinimix has been held over the last 24 hours but the blood sugar, even though we have increased Lantus to 80 units daily, the basal sugar for BMP is 280. At this point, because he is not receiving any nutrition by Clinimix, we are going to continue with the same amount of insulin. We will continue to check Accu-Cheks before meals and also at bedtime. 6. History of pulmonary embolism. Patient was on Eliquis at admission but I have changed it to heparin on this patient for possible surgery but General Surgery said medical management for this condition, so we are going to continue heparin while he is here and we are going to switch to Eliquis when he is ready to go home. 7. Acute cholecystitis. He was evaluated by General Surgery. As we mentioned before, just medical treatment with Zosyn. Patient is complaining of abdominal pain. He is not running a fever and white cell count is within normal limits. 8. Nutritional status. Clinimix was held yesterday. Today, he is looking much better, so we are going to talk with the family to see if they are okay to place a nasogastric tube on him. If they do, we are going to do it. If not, we have explained to family that we may need to get a percutaneous endoscopic gastrostomy tube but that will be difficult to place considering his respiratory status. 9. Insomnia. We will continue with the melatonin. 10. Paroxysmal atrial fibrillation. Patient is in sinus rhythm now. 11. Sigmoid mass. Evaluated by Gastroenterology. They are going to scope him when his respiratory status is better. 12. Disposition. Patient is not doing good. Actually the CO2 is still high because patient's refused BiPAP for this patient. In any case, we are going to continue to advise her that this patient really needs BiPAP. He is Do Not Resuscitate level 2. He is going to be intubated if needed. 13. Code status Do Not Resuscitate, level 2. cc: Maninder Harvey MD MTDD
[2017-06-08 09:01] LABS: BANDS 2 % (0-1); LYMPHS 10 % (21-51)
[2017-06-08 09:02] LABS: HYPOCHROM 1+
[2017-06-08] MEDS: KEPPRA 500 MG in NS 100 ML IV SCH ×2 (09:03→20:58)
[2017-06-08] MEDS: HEPARIN SUBQ SCH ×2 (09:09→21:01)
[2017-06-08] MEDS: LASIX IV SCH ×2 (09:12→21:01)
[2017-06-08] MEDS: PRINIVIL PO SCH (09:13)
[2017-06-08] MEDS: LANTUS SUBQ SCH (09:14)
[2017-06-08] MEDS: TEFLARO 600 MG in NS 250 ML IV SCH ×2 (11:12→22:15)
[2017-06-08] MEDS: PRAVACHOL PO SCH (21:01)
[2017-06-08] MEDS: MELATONIN PO SCH (21:01)
[2017-06-09] MEDS: DUONEB (A & A) INH SCH ×6 (03:58→23:09)
[2017-06-09] MEDS: ZOSYN 3.375 GM in NS 50 ML IV SCH ×4 (05:21→21:39)
[2017-06-09 05:48] LABS: HEMATOCRIT 34.4 % (42.0-52.0); HEMOGLOBIN 10.5 g/dL (14.0-18.0); IMM GRAN# 0.03 X1000 (0.0-0.04); IMM GRAN% 0.4 % (0.0-0.5); LYMPH# 0.38 X1000 (1.2-3.4); LYMPH% 4.9 % (20.5-51.1); MANUAL DIFF NEEDED? NO; MCH 23.6 PG (27-31); MCHC 30.5 g/dL (33-37); MCV 77.5 FL (81-99); MONO# 0.22 X1000 (0.11-0.59); MONO% 2.8 % (1.7-9.3); MPV 9.8 FL (7.4-10.4); NEUT% 91.9 % (42.2-75.2); PLT 401 X1000 (130-400); RBC 4.44 XMIL (4.7-6.1)
[2017-06-09] MEDS: HUMALOG SUBQ SCH ×4 (06:13→21:18)
[2017-06-09] MEDS: PROTONIX IV SCH ×2 (06:13→16:50)
[2017-06-09] MEDS: SOLU-MEDROL IV SCH ×3 (06:13→21:18)
[2017-06-09 06:32] LABS: CALCIUM 7.8 mg/dL (8.8-10.2); POTASSIUM 4.2 mmol/L (3.5-5.1)
--- NOTE | 2017-06-09 07:33 | Diag Imaging Result Doc PS360 ---
EXAM: CHEST-PORTABLE HISTORY: respiratory failure TECHNIQUE: Erect AP portable at 0610 COMMENT: There is cardiomegaly. There is interstitial opacity in the lung bases. The inspiration is less optimal than on 06/08/2017, however otherwise has been no significant change. IMPRESSION: Stable chest. Electronically signed by Wellington Mason 06/09/2017 7:31 AM
[2017-06-09] MEDS: PERFOROMIST NEB INH SCH ×2 (07:50→19:19)
[2017-06-09 09:13] LABS: ALLEN TEST YES; BE 10.6 mmoll (-3.0-3.0); BLOOD TYPE ARTERIAL; DRAW SITE L RADIAL; METHB 1.2 % (0.0-1.5); O2(CT) 14.2 mL/dL (15.0-23.0); PCO2(98.6) 49 mmHg (35-45); PO2(98.6) 55 mmHg (60-100); SAMPLE BLOOD; SAO2 92.3 % (95.0-100.0); THB 11.3 g/dL (11.5-17.4); pH(98.6) 7.47 (7.35-7.45)
[2017-06-09 09:14] LABS: MODALITY CANNULA
[2017-06-09] MEDS ORDERED: LASIX IV SCH (09:30)
[2017-06-09] MEDS: HEPARIN SUBQ SCH ×2 (09:49→21:18)
[2017-06-09] MEDS: KEPPRA 500 MG in NS 100 ML IV SCH ×2 (09:49→21:18)
[2017-06-09] MEDS: PERICOLACE PO SCH (09:49)
[2017-06-09] MEDS: LASIX IV SCH (09:50)
[2017-06-09] MEDS: LANTUS SUBQ SCH (09:50)
[2017-06-09] MEDS: PRINIVIL PO SCH (09:50)
[2017-06-09] MEDS: MIRALAX PO SCH (09:50)
[2017-06-09] MEDS: TEFLARO 600 MG in NS 250 ML IV SCH ×2 (11:19→22:16)
--- NOTE | 2017-06-09 11:19 | PROGRESS NOTE ---
DATE: 06/09/2017 SUBJECTIVE: Patient looks much better today. He is more awake. He denies any shortness of breath. As per who is at bedside, he is breathing better. His oxygen needs have been going down. No acute issues reported by the nursing staff overnight except that the family has refused to have an ABG. OBJECTIVE: Vital Signs: Temperature 97.8 degrees, heart rate 64, respiratory rate 20, blood pressure 84/56, O2 saturation 94% on 4 L nasal cannula. General: This is a chronically ill- looking, frail, 86-year-old male, lying in bed in no acute distress using a nasal cannula. HEENT: Head is normocephalic and atraumatic. Anicteric sclerae and pale conjunctivae. Neck supple. No JVD noted. No carotid bruits. No lymphadenopathy. No thyromegaly. Cardiovascular: S1, S2 heard. No murmurs, gallops, or rubs. Regular rate and rhythm. Respiratory: Decreased breath sounds globally but pretty much no wheezing today. Almost no crackles in both lungs. Abdomen: Soft, a little bit distended but nontender to palpation. Bowel sounds present. No organomegaly. No signs of peritoneal irritation. Stoner negative. Extremities: No clubbing, cyanosis, or edema. Peripheral pulses present in both legs. Neurological: Patient is definitely more awake and answer questions appropriately. Follow commands. Oriented in place and person. LABORATORY DATA: White cell count 7.77, hemoglobin 10.5, hematocrit 34.4, platelets 401. BMP remarkable for creatinine 2.1 and BUN of 71. Blood sugars 195. ASSESSMENT AND PLAN: 1. Community-acquired pneumonia. Patient is on Zosyn and Teflaro. We will continue with the same management. White cell count is back to normal. He is not spiking any fever. 2. Acute hypoxemic hypercarbic respiratory failure. Clinically, he is doing good, requiring less oxygen. Now he is requiring 4 L of oxygen, and he is maintaining O2 saturation above 90% all the time. At this point, we are going to continue with the same oxygen supplementation. Because of volume overload and pulmonary edema noted in the x-ray, we have started this patient on Lasix 40 mg twice daily, but considering the blood pressure is getting in the range of 85 and 90s systolic blood pressure, I decided to just do Lasix 40 once daily, and also he was getting lisinopril 5 mg which has been discontinued already. 3. Chronic obstructive pulmonary disease exacerbation. We will continue with DuoNeb every 4 hours. Schedule it. And, also every 2 hours as needed. The lung examination did show definitely a better physical examination. We are going to continue with the same management. 4. Aebkd-hh-hkcbxad kidney disease. Creatinine is around baseline. We will continue with the same management. 5. Diabetes mellitus, type 2. Even though the patient just ate apparently one time yesterday and he was on Clinimix for nutritional support, the blood sugar has been in the range of 200. What I am going to do is to switch Lantus from once daily to twice daily, and we are going to increase the doses on 5 units. In this case, it will be 45 units at night and 45 units in the daytime. We will continue to check Accu-Cheks before meals and also at bedtime. 6. History of pulmonary embolism, currently on Heparin. At discharge, we are going to switch to his home medication, in this case Eliquis. 7. Acute cholecystitis, doing fine. Evaluated by surgery. They are not going to do any surgery by now. Will continue with Zosyn for this condition. 8. Nutritional status. The patient is more awake and trying to eat more. At this point, we have talked with the family that he needs to be fed. I am not going to restart Clinimix. I am not going to place any NGT feeding because this patient looks much better and will continue with the same diet. 9. Insomnia. We will continue with melatonin. 10. Paroxysmal atrial fibrillation. Patient is in atrial fibrillation now, rate controlled. 11. Sigmoid mass. This was evaluated by the interior decorator, Dr. Cee. They are not planning to do any procedure because his respiratory status is still unstable. We will see if they are planning to do it while he is here or as an outpatient. 12. Physical deconditioning. We will continue with physical therapy. DISPOSITION: The patient is going to stay in the CCU for today. The oxygen needs are getting better, acquiring now 4 L of oxygen by nasal cannula. We are going to watch him one more day here and, if he continues to improve, we are going to send him to a regular floor. cc: Maninder Harvey MD [facility] CENTERPaulo
[2017-06-09] MEDS: MELATONIN PO SCH (21:18)
[2017-06-09] MEDS: PRAVACHOL PO SCH (21:18)
[2017-06-10] MEDS: DUONEB (A & A) INH SCH ×5 (03:54→23:55)
[2017-06-10] MEDS: SOLU-MEDROL IV SCH ×3 (04:22→21:51)
[2017-06-10] MEDS: PROTONIX IV SCH ×2 (04:22→16:01)
[2017-06-10] MEDS: ZOSYN 3.375 GM in NS 50 ML IV SCH ×4 (04:22→22:28)
[2017-06-10 04:35] LABS: ALLEN TEST YES; BE 9.4 mmoll (-3.0-3.0); BLOOD TYPE ARTERIAL; DRAW SITE R RADIAL; METHB 1.1 % (0.0-1.5); O2(CT) 16.1 mL/dL (15.0-23.0); PO2(98.6) 64 mmHg (60-100); SAMPLE BLOOD; SAO2 94.7 % (95.0-100.0); THB 12.5 g/dL (11.5-17.4); pH(98.6) 7.42 (7.35-7.45)
[2017-06-10 04:36] LABS: MODALITY CANNULA; PCO2(98.6) 55 mmHg (35-45)
[2017-06-10 05:48] LABS: HEMATOCRIT 34.3 % (42.0-52.0); HEMOGLOBIN 10.2 g/dL (14.0-18.0); IMM GRAN# 0.03 X1000 (0.0-0.04); IMM GRAN% 0.4 % (0.0-0.5); LYMPH# 0.25 X1000 (1.2-3.4); LYMPH% 3.6 % (20.5-51.1); MANUAL DIFF NEEDED? YES; MCH 23.2 PG (27-31); MCHC 29.7 g/dL (33-37); MCV 78.1 FL (81-99); MONO# 0.25 X1000 (0.11-0.59); MONO% 3.6 % (1.7-9.3); MPV 9.9 FL (7.4-10.4); NEUT% 92.4 % (42.2-75.2); PLT 371 X1000 (130-400); RBC 4.39 XMIL (4.7-6.1)
[2017-06-10 06:14] LABS: CALCIUM 8.5 mg/dL (8.8-10.2); POTASSIUM 4.5 mmol/L (3.5-5.1)
[2017-06-10] MEDS: HUMALOG SUBQ SCH ×4 (06:27→21:51)
--- NOTE | 2017-06-10 07:25 | Diag Imaging Result Doc PS360 ---
CHEST-PORTABLE - 06/10/2017 INDICATION: respiratory failure TECHNIQUE: COMPARISON: 06/09/2017 FINDINGS: Stable cardiomegaly and pulmonary vascular congestion. Stable patchy bibasilar infiltrates, nonspecific. No pneumothorax. IMPRESSION: No change from prior. Electronically signed by Ovidio Enriquez 06/10/2017 7:23 AM
[2017-06-10 07:27] LABS: BANDS 2 % (0-1); HYPOCHROM 2+; LYMPHS 6 % (21-51)
[2017-06-10] MEDS: PERFOROMIST NEB INH SCH (07:31)
[2017-06-10] MEDS ORDERED: INSULIN PEN NEEDLES ONE (09:23)
[2017-06-10] MEDS: MIRALAX PO SCH (09:25)
[2017-06-10] MEDS: KEPPRA 500 MG in NS 100 ML IV SCH ×2 (09:26→21:50)
[2017-06-10] MEDS: HEPARIN SUBQ SCH (09:28)
[2017-06-10] MEDS: PERICOLACE PO SCH (09:30)
[2017-06-10] MEDS: LANTUS SUBQ SCH ×2 (09:30→21:50)
--- NOTE | 2017-06-10 09:34 | PROGRESS NOTE ---
DATE: 06/10/2017 SUBJECTIVE: The patient continues to looks better, more awake. No shortness of breath. His sister, who is at bedside, he is doing fine. He ate dinner last night, and he was eating his breakfast at the time of my examination. OBJECTIVE: Vital Signs: Temperature 97.7 degrees, heart rate 64, respiratory rate 16, blood pressure 99/57, O2 sat 96% on 4 L nasal cannula. General: This is a chronically ill-looking and frail 86-year-old male, lying in bed, in no acute distress using a nasal cannula. HEENT: Head is normocephalic, atraumatic. Neck: Supple. No JVD noted. No carotid bruits. Cardiovascular: S1, S2 heard. No murmurs, gallops, or rubs. Regular rate and rhythm. Respiratory: Decreased breath sounds globally, but no wheezing today. Almost no crackles in both bases. Abdomen: Soft, a little bit distended but nontender to palpation. Bowel sounds present. No organomegaly. No signs of peritoneal irritation. Stoner negative. Extremities: No clubbing, cyanosis, or edema. Peripheral pulses present in both legs. Neurological: Patient is definitely more awake and answers questions appropriately yesterday. Follow commands and oriented in place and person. LABORATORY DATA: Remarkable for ABG today showed with pCO2 of 55 and also pH 7.42. ASSESSMENT/PLAN: 1. Community-acquired pneumonia. Patient's white cell count is normal. Patient has been given Zosyn. Today is day #11. He was started on Teflaro 3 days ago. The patient is not febrile. We will continue with the same management. 2. Acute hypoxemic hypercarbic respiratory failure. During the last 2 days, clinically, he is looking much better, more awake, requiring less oxygen. At home, he is using 3 L of oxygen by nasal cannula, and here she is requiring 4 during the last 48 hours. Because of volume overload, he was receiving Lasix 40 mg IV b.i.d. that we changed it to once daily considering his borderline low blood pressure. Family reports that the blood pressure for him runs between high 90s and 100 all the time. The patient was prescribed lisinopril , which we have discontinued yesterday. At this point, we are going to continue with Lasix 40 mg IV daily. We are going to continue watching this patient here in the [facility]. 3. Chronic obstructive pulmonary disease exacerbation. We will continue with DuoNeb every 4 hours as scheduled and every 2 hours as needed. Physical examination is definitely better with no wheezing, just some fine crackles in both bases. We will continue with the same management. 4. Acute on chronic kidney disease. Creatinine around baseline. 5. Diabetes mellitus type 2. Patient is eating, but mild during the last 2 days , and the blood sugar has been high. He is also receiving Solu-Medrol 40 mg IV 3 times per day. At this point, we are going to increase the doses of Lantus from 80-100. But we are going split it twice daily. We are going to decrease the doses of Solu-Medrol 240 b.i.d., and we will readjust the doses of Lantus accordingly. We are going to continue checking Accu-Cheks before meals and also at bedtime. 6. History of pulmonary embolism. At this time, he is more stable, so we are going to put this patient on Eliquis, home doses. 7. Acute cholecystitis. This condition is definitely much better. He has been evaluated by surgery on admission. They were not planning to do any surgery. I think now he does not need any back surgery. 8. We will continue with Zosyn for this condition. 9. Nutritional status. Patient is eating better of course. Albumin is low, but I definitely hope that he continues to eat. His nutritional markers will get better. 10. Insomnia. Will continue with melatonin. 11. Paroxysmal atrial fibrillation. At this point, the patient is in sinus rhythm. 12. Sigmoid mass. The patient was evaluated by GI, Dr. Cee, and of course because of his respiratory status it was not possible to do any colonoscopy. At this point, he is more stable, but I think this patient may be seen in the office for an outpatient colonoscopy. 13. Physical deconditioning. Physical therapy has been reconsulted, and I think this patient will need to go to a nursing rehab facility. back up worker will be notified today. DISPOSITION: We are going to watch this patient 1 more day in the [facility], monitor oxygen needs. cc: MD KWAME Hutchinson
[2017-06-10] MEDS: TEFLARO 600 MG in NS 250 ML IV SCH ×2 (11:36→23:01)
[2017-06-10] MEDS: PRAVACHOL PO SCH (21:49)
[2017-06-10] MEDS: MELATONIN PO SCH (21:49)
[2017-06-10] MEDS: ELIQUIS PO SCH (21:49)
[2017-06-11] MEDS: PERFOROMIST NEB INH SCH ×3 (00:42→19:42)
[2017-06-11] MEDS: DUONEB (A & A) INH SCH ×7 (01:14→23:10)
[2017-06-11 04:51] LABS: ALLEN TEST YES; BLOOD TYPE ARTERIAL; DRAW SITE R RADIAL; METHB 1.4 % (0.0-1.5); O2(CT) 14.4 mL/dL (15.0-23.0); PO2(98.6) 64 mmHg (60-100); SAMPLE BLOOD; SAO2 94.1 % (95.0-100.0); THB 11.2 g/dL (11.5-17.4); pH(98.6) 7.39 (7.35-7.45)
[2017-06-11] MEDS: ZOSYN 3.375 GM in NS 50 ML IV SCH ×4 (04:51→21:20)
[2017-06-11] MEDS: PROTONIX IV SCH ×2 (04:51→17:22)
[2017-06-11 04:52] LABS: MODALITY CANNULA; PCO2(98.6) 61 mmHg (35-45)
[2017-06-11 05:25] LABS: HEMATOCRIT 34.5 % (42.0-52.0); HEMOGLOBIN 10.2 g/dL (14.0-18.0); IMM GRAN# 0.02 X1000 (0.0-0.04); IMM GRAN% 0.3 % (0.0-0.5); LYMPH# 0.27 X1000 (1.2-3.4); LYMPH% 3.9 % (20.5-51.1); MANUAL DIFF NEEDED? YES; MCH 23.5 PG (27-31); MCHC 29.6 g/dL (33-37); MCV 79.5 FL (81-99); MONO# 0.34 X1000 (0.11-0.59); MONO% 4.9 % (1.7-9.3); MPV 9.7 FL (7.4-10.4); NEUT% 90.9 % (42.2-75.2); PLT 333 X1000 (130-400); RBC 4.34 XMIL (4.7-6.1)
[2017-06-11 05:53] LABS: LARGE PLATELETS 1+; MONO 5 % (1-9)
[2017-06-11 05:54] LABS: LYMPHS 3 % (21-51)
[2017-06-11 05:55] LABS: CALCIUM 8.1 mg/dL (8.8-10.2); POTASSIUM 4.8 mmol/L (3.5-5.1)
[2017-06-11] MEDS: HUMALOG SUBQ SCH ×4 (06:13→20:41)
[2017-06-11] MEDS: KEPPRA 500 MG in NS 100 ML IV SCH ×2 (08:29→20:41)
[2017-06-11] MEDS: MIRALAX PO SCH (08:29)
[2017-06-11] MEDS: PERICOLACE PO SCH (08:30)
[2017-06-11] MEDS: SOLU-MEDROL IV SCH (08:30)
[2017-06-11] MEDS: LANTUS SUBQ SCH ×2 (08:30→20:41)
[2017-06-11] MEDS: ELIQUIS PO SCH ×2 (08:30→20:42)
[2017-06-11] MEDS: LINZESS PO SCH (08:37)
--- NOTE | 2017-06-11 09:09 | PROGRESS NOTE ---
DATE: 06/11/2017 SUBJECTIVE: The patient continues to be stable requiring the same amount of oxygen. Mental status, according to the family who is at bedside, is the same. He is eating better; not like he was doing home but definitely much better. No acute issues noted as per nursing staff overnight. OBJECTIVE: Vital Signs: Temperature 98.6 degrees, heart rate 64, respiratory 14 , blood pressure 105/58, O2 sats 92% on 4 L nasal cannula. General: This is a chronically ill- looking, frail, 86- year-old male lying in bed in no acute distress. HEENT: Head is normocephalic and atraumatic. Neck supple. No JVD noted. No carotid bruits. Cardiovascular: S1 , S2 heard. No murmurs, gallops, or rubs. Regular rate and rhythm. Respiratory: Decreased breath sounds globally. No wheezing. No crackles in both bases. The patient is not using any accessory muscles or having work of breathing. Abdomen is soft, a little bit distended but nontender to palpation. Bowel sounds present. No organomegaly. No signs of peritoneal irritation. Mildly negative. Extremities: No clubbing, cyanosis, or edema. Peripheral pulses present in both legs. Neurologic: The patient is definitely more awake and, according to the family, he is almost back to his baseline. Follow commands and oriented to place and person. LABORATORY DATA: White cell count 6.89, hemoglobin 10.2, hematocrit 34.5, platelets 333,000 with ABG that shows pH 7.39, pCO2 of 61, sodium 147, and the creatinine is 2.0 today. ASSESSMENT AND PLAN: 1. Community-acquired pneumonia. The patient actually is on Zosyn today; it is day #12. And, also, Teflaro day #4. Patient is not febrile. We will continue with the same management, requiring 4 L of oxygen by nasal cannula. 2. Acute hypoxemic hypercarbic respiratory failure. During the last 3 days, clinically, this patient has been doing much better. Almost close to his baseline according to the family who is with him everyday. They reported that at home they use 3 L of oxygen by nasal cannula and, here he is requiring 4 during the last 3 days. Because he was receiving Clinimix as nutritional support that produced volume overload and he was receiving initially Lasix 40 mg IV twice daily that was changed to 1 daily and yesterday was stopped. At this point, we are going to monitor this patient closely. I think he may need at discharge Lasix, small doses like 20 mg p.o. daily. Blood pressure also runs usually low in the range of 90s and 100. At this point, we are going to restart Lasix 20 mg p.o. daily. 3. Chronic obstructive pulmonary disease exacerbation. Patient receiving DuoNeb every 4 hours as scheduled and also every 2 hours p.r.n. for shortness of breath. Physical examination shows definitely no wheezing. No crackles. We will continue with the same management. 4. Kyskm-wc-gueuevc kidney disease. Creatinine around baseline. Creatinine increased just a little bit even though he was receiving Lasix 40 mg IV b.i.d. We will continue to check BMP daily. 5. Diabetes mellitus, type 2. The patient is eating better and almost like when he was at home before coming to the hospital. Also,she is receiving Solu-Medrol 3 times per day. We need to increase the doses of Lantus to 50 mg subcutaneous 2 times per day. At this point, we are going to continue with the same amount of Lantus. We will keep checking Accu- Cheks before meals and also at bedtime. We are going to decrease the dose of Solu- Medrol to 40 daily and then will switch to p.o. Medrol and, at discharge, I am planning to provide the Medrol pack. 6. History of pulmonary embolism. The patient has been restarted on Eliquis considering that he is not going to get any surgery. 7. Acute cholecystitis. This condition, I think, is much better. Physical examination did not disclose any Stoner signs or signs of peritoneal irritation. Surgery has been following this patient, and they are not planning to do any surgery here in the hospital. 8. Nutritional status. The patient is feeling a little bit better but as seen will definitely start Megace on this patient to stimulate appetite. 10. Insomnia. We will continue melatonin. 11. Paroxysmal atrial fibrillation. Patient is on sinus rhythm. 12. Sigmoid mass. I talked with the family about this finding and that it was discovered in his hospitalization at [facility]. They were told apparently that he had a sigmoid mass that could be cancer. Because of his clinical condition at that time, he was not scoped. During the last 3 days, he is on 4 L of oxygen by nasal cannula. I think this is his new baseline. On talking with his sister, she said that even in the case we find colon cancer, the patient will more than likely refuse therapies, so we got an agreement that we are not going to pursue anymore further GI workup here in the hospital. 13. History of hemorrhagic stroke, aware. 14. Physical deconditioning. Physical therapy working with this patient. Now, we will need to send to a rehab facility as soon as we get a bed. DISPOSITION: The patient is medically stable and, hopefully, we can get a bed for him for tomorrow. cc: Maninder Harvey MD MTDD
[2017-06-11] MEDS: TEFLARO 400 MG in NS 250 ML IV SCH ×2 (11:34→22:19)
--- NOTE | 2017-06-11 17:22 | ECHO REPORT ---
ORDER DATE: 06/11/2017 INDICATION: Pulmonary edema, coronary disease. FINDINGS: 1. The right atrium is mildly enlarged at 4.8 cm. 2. Mild tricuspid regurgitation. The RV systolic pressure is 72 suggesting pulmonary hypertension. 3. Normal RV size and systolic function. 4. Trace pulmonic insufficiency. 5. Moderate left atrial enlargement with a left atrial volume index of 36.7. 6. No mitral prolapse. Mild mitral regurgitation. 7. Normal LV size, end-diastolic dimension of 5.3. Normal wall thicknesses with a posterior and interventricular septal wall thickness 1.1 and 1.0 cm, respectively. Normal LV systolic function. Estimated EF 60%. 8. Aortic valve opens well, it is trileaflet. No evidence of stenosis. Trace insufficiency. 9. Aorta appears normal visualized segments. 10. No pericardial effusion identified. cc: MD Maninder Peres MD
[2017-06-11] MEDS: PRAVACHOL PO SCH (20:42)
[2017-06-11] MEDS: MELATONIN PO SCH (20:42)
[2017-06-12] MEDS: DUONEB (A & A) INH SCH ×4 (03:47→16:27)
[2017-06-12] MEDS: ZOSYN 3.375 GM in NS 50 ML IV SCH ×2 (04:30→09:14)
[2017-06-12] MEDS: PROTONIX IV SCH (04:30)
[2017-06-12 04:49] LABS: ALLEN TEST YES; BE 8.2 mmoll (-3.0-3.0); BLOOD TYPE ARTERIAL; DRAW SITE R RADIAL; O2(CT) 13.1 mL/dL (15.0-23.0); PO2(98.6) 52 mmHg (60-100); SAMPLE BLOOD; SAO2 91.4 % (95.0-100.0); THB 10.5 g/dL (11.5-17.4); pH(98.6) 7.41 (7.35-7.45)
[2017-06-12 04:51] LABS: MODALITY CANNULA; PCO2(98.6) 54 mmHg (35-45)
[2017-06-12] MEDS: LINZESS PO SCH (06:02)
[2017-06-12] MEDS: HUMALOG SUBQ SCH ×2 (06:02→11:05)
[2017-06-12] MEDS ORDERED: LANTUS SUBQ SCH (07:34)
[2017-06-12] MEDS ORDERED: SPIRIVA INH SCH (07:45)
[2017-06-12] MEDS: PERFOROMIST NEB INH SCH (07:57)
--- NOTE | 2017-06-12 08:16 | PROGRESS NOTE ---
DATE: 06/12/2017 SUBJECTIVE: Patient reports feeling fine. The mental status was fine during the last 5 days. As per family who is at bedside, he is at his baseline. He is eating but he does not eat by himself, only when he is fed by somebody else. OBJECTIVE: Vital Signs: Temperature 96.9 degrees, heart rate 65, respiratory rate 18, blood pressure 115/47, O2 saturation 95% on 4 L nasal cannula. General Examination: This is a chronically ill-looking and frail, 86-year-old, male, lying in bed, in no acute distress. HEENT: Head is normocephalic and atraumatic. Anicteric sclerae and pale conjunctivae. Mucous membranes moist. Neck: Supple. No JVD noted. No carotid bruits. No lymphadenopathy. No thyromegaly. Cardiovascular Examination: S1 and S2 heard. No murmurs, gallops, or rubs. Regular rate and rhythm. Respiratory Examination: Decreased breath sounds globally. No crackles in both bases. No wheezing noted. The patient is not using any accessory muscles or having work of breathing. Abdomen: Soft. A little bit distended. Nontender to palpation. There are no signs of peritoneal irritation. Stoner's sign negative. Extremities: No clubbing, cyanosis, or edema. Peripheral pulses present in both legs. Neurological Examination: The patient is definitely more awake. He is back to his baseline. Follow commands. Oriented in person and place. Laboratory Data: Pending at the time of my dictation but ABG shows pH of 7.41 and pCO2 of 54. ASSESSMENT/PLAN: 1. Community-acquired pneumonia. Patient is on Zosyn, today is #14, and Teflaro day #5. At this time, I am going to stop the Zosyn. We will continue with Teflaro while this patient is here. I do not think this patient will need any antibiotics at discharge. White cell count is normal. Patient is not febrile, has not been febrile. He is basically almost back to his oxygen baseline at home which is 3 L. There is a plan for discharge for this patient for today. 2. Acute hypoxemic, hypercarbic respiratory failure. He is on 4 L of oxygen by nasal cannula most of the time. The CO2 is between 50s and 60s. Patient does not like to use BiPAP. At this time, we are going to continue with the same management. He was also receiving Lasix 40 mg intravenous every 12 hours. By now, we have switched to Lasix 40 mg daily orally. We will continue with the same management. I think he needs to be discharged on that medication. 3. Chronic obstructive pulmonary disease exacerbation. Patient on DuoNeb every 4 hours as scheduled and every 2 hours as needed. Physical examination definitely did not show any wheezing or crackles today. The patient has been started on formoterol and long-acting beta agonist, and also I am going to start him on Spiriva 1 inhalation daily. Patient will be on all home medications available for chronic obstructive pulmonary disease. Hopefully, he can start requiring 3 L of oxygen as he was needing before coming to the hospital, although 4 L could be his new baseline for now. 4. Acute on chronic kidney disease. Creatinine around baseline. We will continue with the same management. 5. Diabetes mellitus type 2. The Accu-Chek from this morning showed 89 after it was showing 200 and above. At this time, we are going to decrease the doses of Lantus to 45 units subcutaneously twice a day. We will keep checking Accu-Cheks before meals and also at bedtime. 6. History of pulmonary embolism. Patient is on Eliquis. 7. Acute cholecystitis. That condition is stable. Evaluated by surgery at admission. They did not mention any possibility of surgery during the last few days. 8. Nutritional status. Patient is eating better but it is important to remark that he needs to be fed. Otherwise, he does not eat by himself. 9. Insomnia. We will continue with melatonin. 10. Paroxysmal atrial fibrillation. By now, this patient is in sinus rhythm. 11. Sigmoid mass. Please note, the notes from yesterday in which the family states that they do not want to pursue any further workup for this condition. 12. History of hemorrhagic stroke. This is stable. Physical deconditioning. Physical therapy working with this patient. 13. Disposition. The patient is medically stable and hopefully he can be sent to rehab facility today. cc: Maninder Harvey MD
[2017-06-12 08:25] LABS: CALCIUM 8.5 mg/dL (8.8-10.2); POTASSIUM 4.4 mmol/L (3.5-5.1)
[2017-06-12] MEDS ORDERED: MEGACE PO SCH (09:00)
[2017-06-12] MEDS ORDERED: KEPPRA PO SCH (09:00)
[2017-06-12] MEDS ORDERED: LASIX PO SCH (09:00)
[2017-06-12] MEDS: ELIQUIS PO SCH (09:13)
[2017-06-12] MEDS: SOLU-MEDROL IV SCH (09:14)
[2017-06-12] MEDS: PERICOLACE PO SCH (09:14)
[2017-06-12] MEDS: MIRALAX PO SCH (09:14)
[2017-06-12] MEDS ORDERED: D50W SYRINGE IV PRN (11:18)
[2017-06-12] MEDS: TEFLARO 400 MG in NS 250 ML IV SCH (12:05)
--- NOTE | 2017-06-12 14:06 | DISCHARGE SUMMARY ---
ADMISSION DATE: 05/29/2017 DISCHARGE DATE: 06/12/2017 CONSULTATIONS: 1. Dr. Tong Mccoy with pulmonology. 2. Dr. Elia Robles with general surgery. 3. Dr. Shirin Cee with gastroenterology. PERTINENT PROCEDURES: 1. Abdomen ultrasound showed cholelithiasis with possibility of chronic cholecystitis. 2. V/Q scan showed low probability for PE. 3. Abdomen CT showed acute cholecystitis. Stable dilatation of infrarenal abdominal aorta. Stable dilatation of the right common iliac artery. 4. Echocardiogram showed an EF of 60%. DISCHARGE DIAGNOSES: 1. Community-acquired pneumonia. The patient has finished full course of intravenous antibiotics. White count remains normal. He is afebrile. Still on supplemental O2. 2. Acute hypoxemic, hypercapnic, hypercarbic respiratory failure followed by pulmonology. The patient did not tolerate BiPAP and remains on 3-5 L nasal cannula. CO2 ranges between 50s and 60s on arterial blood gas. 3. Chronic obstructive pulmonary disease exacerbation. The patient will continue on DuoNeb every 4 hours, 2 hours as needed for wheezing, as well as his other dilators, as well as supplemental oxygen. Followed by Dr. Mccoy. The patient did not tolerate BiPAP. His recommendations were home with hospice. The patient is a do not resuscitate level 2. Will be discharged to [facility]. 4. Acute on chronic kidney disease. Patient is around baseline. 5. Diabetes mellitus type 2. Continue with Lantus. Fingerstick blood sugars. 6. History of pulmonary embolism. The patient will continue on Eliquis. 7. Acute cholecystitis. He was evaluated by general surgery. The patient was treated with a full course of intravenous antibiotics. They were not going to pursue any surgery, stable, just conservative management. 8. Nutritional status. The patient is eating, but he requires assistance with all meal. 9. Insomnia. Continue melatonin. 10. Paroxysmal atrial fibrillation, stable. 11. Sigmoid mass. The family does not want to pursue any further workup for this condition. 12. Hemorrhagic stroke in the past. They did speak with neurosurgery. They did state it was okay for him to continue on his Eliquis. 13. Septic shock. Resolved. 14. Congestive heart failure, likely diastolic. Continue oral Lasix. 15. Right common iliac aneurysm. Stable. 16. Coronary artery disease. Stable. 17. Do not resuscitate level 2. The family only wants to use medication on the patient, no aggressive measures, no cardiopulmonary resuscitation, no cardioversion, no endotracheal tube or mechanical ventilation. HOSPITAL COURSE: Briefly, Mr. Floyd is an 86-year-old, male, who carries a past medical history of coronary artery disease, COPD, subdural hematoma, pulmonary embolism on Eliquis, chronic kidney disease, right common iliac aneurysm, paroxysmal atrial fibrillation, possibly diastolic heart failure, diabetes mellitus type 2. He was brought to the ED with a chief complaint of generalized weakness, confusion, nausea and vomiting. Decreased appetite. Every time he tried to eat he felt nauseated. He went to see his PCP, Dr. Salinas, the day before his admission who gave him Phenergan and he was sent home. As per the daughter he continued to decline. He started having more nausea, vomiting and confusion. In the ED he was found to be hypotensive, tachypneic, low O2 saturations of 72% on room air. A white count of 16, a lactate of 2.4. ABG showed a PO2 of 58, BUN and creatinine were elevated above his baseline. ProBNP was 45 and 47. He was initiated on the sepsis protocol. Started on IV fluids. Initiated on vasopressor. On physical exam, he was complaining of right upper quadrant discomfort. An abdominal ultrasound showed cholelithiasis with possibility of chronic cholecystitis. He was initiated on antibiotics. A V/Q scan ruled out any new PE, showed low probability. Pulmonology, general surgery as well as GI, was consulted. He was placed in the intensive care unit, continued on bronchodilators, supplemental O2, aggressive pulmonary toilet. At the time of his admission his family made him a DNR level 2. They do not want any aggressive measures, only medications. No CPR, no cardioversion, no endotracheal intubation. General surgery along with GI both were in agreement given his status that they would treat him conservatively with IV antibiotics and evaluate him on a daily basis. The patient remained in the ICU for several days. He was encouraged to take in free water given his high sodium level. They were able to wean him off his vasopressors. At one point, he was using a Ventimask. They were able to wean him down to 6 L nasal cannula. Pulmonary did try to place him on BiPAP at night. However, he could not tolerate the BiPAP. Given his end-stage lung disease and not tolerating BiPAP, his recommendation was to possibly discharge with hospice. The patient was able to start a diet, however he needed lots of encouragement as well as assistance with his food. He was also placed on Clinimix, Ensure and Glucerna. He was able to move out of the intensive care unit to the step-down unit. Mr. Floyd remains on supplemental O2 requiring 4-5 L nasal cannula. He has completed a full course of antibiotics for his acute cholecystitis, as well as his pneumonia. He has been working with physical therapy. They do recommend rehab. Diabetologist was consulted. He does have placement at [facility] today. VITAL SIGNS AT TIME OF DISCHARGE: Temperature was 98.7 degrees, heart rate 63, respirations 16, blood pressure 109/59, O2 91% on 2 L nasal cannula. White count of 6, hemoglobin and hematocrit is 10 and 34, platelet count 333. Sodium was 149, potassium 4.4, BUN 55, creatinine 1.6. Blood glucose 61. DISCHARGE DIET: Diabetic with Glucerna shakes. He prefers vanilla only. I do recommend increase in his free water intake related to his elevated sodium. DISCHARGE MEDICATIONS: As per Dr. Abreu. Please see MAR. FOLLOWUP: Mr. Floyd is being discharged to [facility]. He will need assistance with all meals and continue with free water intake. Continue pattern blood sugars before meals and at bedtime. He will follow up with his primary care physician, Dr. Salinas, in 7-10 days. He can continue to follow up with Dr. Cee, his GI specialist. He can return to the ED for any worsening of symptoms. The patient was a DNR level 2 while in our facility. DISCHARGE TIME: Greater than 35 minutes. Dictated by SAMMIE Parisi for Maninder Harvey MD Addendum: Patient seen and examined by myself. Agree with SAMMIE note. It reflects my assessment and plan. Patient was admitted for many medical conditions including acute respiratory failure, acute cholecystitis, sigmoid mass, altered mental status, pneumonia. All conditions has been resolving slowly. Mental status is back to normal. Patient oxygen needs now is 4 lt per minute but before coming to hospital it was 3. Acute cholecystitis was treated medically only as per surgery recommendation. Family refused to continue with further workup for sigmoid mass. Patient is being discharged in stable condition to rehab facility. cc: MD Radha Hutchinson MD MTDD
[2017-06-12 16:27] VITALS: BP 118/67
== END 2017-06-12 16:45 ==
LOC: SUPCPDRO → ED 11:51 → ICU 18:44 → SUATTDRO 18:44 → 3S 06-04 14:22
PROVIDERS: ATTEND Internal Medicine